=== PATIENT | female | born 1980 | race Caucasian/White ===

== ENCOUNTER 2018-03-28 15:30 | Outpatient (RCR) | payer BC, SELFPAY ==
--- NOTE | 2018-02-06 13:53 | HMH.PTOPEV ---
PT Outpatient Evaluation Rehab PT Outpatient Evaluation Start: 02/06/18 12:53 Freq: Status: Active Protocol: Document 02/06/18 13:44 PHOPRINCESS (Rec: 02/06/18 13:53 PHORNE [id number]) Electronically Signed By Bartolo Ibrahim, PT 02/06/18 13:44 Outpatient Therapy Subjective History Subjective History Pt is 37 yowf who presents with medial patella pain during certain activites x ~ 1 mo. She reports having similar problems during high school sports with no good resolution. She reports significant increase in her activity level with running and olympic lifting type activities at a local gym over the past 3-4 mos. Chief Complaint Pain Symptom Type Sharp Symptoms Relieved By Rest/Positioning Symptoms Aggravated By Physical Activity Prior Functional Limitations None Current Functional Limitations Squatting Recreation Activity Walking Stairs Symptom Description Intermittent Activity Dependent Level of pain today (0-10) 0 Pain scale - at its worst (0-10) 8 Hip/Knee Eval MMT right Hip Flexion Strength Grade 5 Normal Hip Abduction Strength Grade 5 Normal Hip Adduction Strength Grade 5 Normal Hip Extension Strength Grade 5 Normal Gluteus Neeraj Strength Grade 5 Normal Hip External Rotation Strength Grade 5 Normal Hip Internal Rotation Strength Grade 5 Normal Knee Extension Strength Grade 5 Normal Knee Flexion Strength Grade 5 Normal ROM Hip ROM Reason Not Measured Within Functional Limits Knee ROM Reason Not Measured Within Functional Limits Special Tests Hip Sheila Test Negative Left Negative Right Hip Piriformis Test Negative Left Negative Right Hip Scouring (Quadrant) Test Negative Left Negative Right Knee Anterior Drawer Test Negative Left Negative Right Kathleen 90/90 Test (PCL) Negative Left Negative Right Knee Anterior Jonh Test Negative Left Negative Right Knee Valgus Stress Test Negative Left Negative Right Knee Varus Stress Test Negative Left Negative Right Knee McMu
== END 2018-03-28 15:31 | disposition home or self-care (01) ==
LOC: PT 15:30
PROVIDERS: PCP Nurse Practitioner Family; Visit Provider Family Medicine
DX: M22.2X1 Patellofemoral disorders, right knee (principal)
CPT/HCPCS: 97010; 97014; 97110; 97140; 97163; 97760; G0283

== ENCOUNTER → 2019-03-20 10:08 | Outpatient (CLI) | payer BC, SELFPAY ==
--- NOTE | 2019-03-20 | XR_ITS ---
PROCEDURE: XR SHOULDER LT MIN 2V CLINICAL INDICATION: ACUTE SHOULDER PAIN especially with abduction COMPARISON: No exams were available for comparison FINDINGS: The lateral clavicle is intact and the AC joint appears normal. The humeral head and glenoid appear normal. There are no soft tissue calcifications. IMPRESSION: No acute findings. Dictated by: Dr. Joe Hawley MD 03/20/2019 10:[address] Joe Hawley MD in [place] 03/20/2019 10:53
== END ==
PROVIDERS: PCP Nurse Practitioner; Visit Provider Nurse Practitioner
DX: M25.512 Pain in left shoulder (principal)
CPT/HCPCS: 73030

== ENCOUNTER 2019-04-06 16:51 | Outpatient (RCR) | payer BC, SELFPAY | END 2019-04-06 16:55 | disposition home or self-care (01) | LOC: PT 16:51 | PROVIDERS: PCP Nurse Practitioner; Visit Provider Nurse Practitioner | DX: M25.512 Pain in left shoulder (principal) ==

== ENCOUNTER 2019-09-04 08:00 | Outpatient (RCR) | payer BC, SELFPAY ==
--- NOTE | 2019-08-28 09:58 | HMH.OTOPEV ---
OT Inpatient Evaluation Rehab OT Outpatient Eval Start: 08/28/19 09:29 Freq: Status: Active Protocol: Document 08/28/19 09:29 RMARSHALMitzi (Rec: 08/28/19 09:57 [id number][facility] Electronically Signed By Alphonso Joseph OT 08/28/19 09:29 Outpatient Therapy Subjective History Subjective History Pt is a 39 year old female who reports to therapy for inital evaluation to left shoulder. Pt reports her left shoulder began having pain ~ 6 months ago. Pt does not recall a specific injury to left shoulder causing her pain. Pt does engage in weight lifting exercise 2-3x's a week. Pt demosntrate with slight decreased AROM and strength. Pt did test positive for shoulder impingement special tests. Pt will continue to be seen twice a week in order to address all deficits. Chief Complaint Pain,Weakness Symptom Type Ache,Throb,Sharp,Dull Symptoms Relieved By Rest/Positioning Symptoms Aggravated By Physical Activity,Lifting Prior Functional Limitations None Current Functional Limitations Reaching,Lifting,Housework, Dressing,Desk Work/Reading, Driving,Sleeping,Recreation Activity Symptom Description Constant but Variable Level of pain today (0-10) 4 Pain scale - at its best (0-10) 2 Pain scale - at its worst (0-10) 8 Shoulder/Elbow Eval Shoulder Objective Measurements Shoulder ROM Left Shoulder Abduction Active Range of 125 degrees Motion (degrees) Shoulder Flexion Active Range of Motion 140 degrees (degrees) Query Text: Shoulder External Rotation Active Range 50 degrees of Motion (degrees) Shoulder Internal Rotation Active Range 50 degrees of Motion (degrees) pain with active ROM shoulder exam left standard pain with passive ROM shoulder exam left standard decreased ROM shoulder exam standard left Shoulder MMT Shoulder Abduction Strength Grade 3 Fair Shoulder Extension Strength Grade 3 Fair Shoulder Flexion Strength Grade 4- Good- Shoulder External Rotation Strength 3 Fair Grade Shoulder Internal Rotation Strength 3 Fair Grade Shoulder Strength Patient Testing
== END 2019-09-04 08:05 | disposition home or self-care (01) ==
LOC: OT 08:00
PROVIDERS: PCP Nurse Practitioner; Visit Provider Family Medicine
DX: M25.512 Pain in left shoulder (principal)
CPT/HCPCS: 97014; 97110; G0283

== ENCOUNTER → 2019-12-08 09:31 | Outpatient (CLI) | payer BC, SELFPAY ==
--- NOTE | 2019-12-08 09:36 | XR_ITS ---
PROCEDURE: XR SHOULDER LT MIN 2V CLINICAL INDICATION: left shoulder pain COMPARISON: XR SHOULDER LT MIN 2V from 03/20/2019 FINDINGS: No fracture or dislocation. No lytic or blastic change. There is normal mineralization. The joint spaces are well-preserved. No significant degenerative/arthritic changes. No erosive changes evident. Other findings:None. IMPRESSION: Negative left shoulder Dictated by: Vince Rico MD 12/08/2019 15:45 Electronically signed by Vince Rico MD in [place] 12/08/2019 15:45
== END ==
PROVIDERS: PCP Family Medicine; Visit Provider Orthopaedic Surgery
DX: M25.512 Pain in left shoulder (principal)
CPT/HCPCS: 73030

== ENCOUNTER 2019-12-21 14:00 | Outpatient (RCR) | payer BC, SELFPAY ==
--- NOTE | 2019-10-29 11:25 | HMH.OTOPEV ---
OT Inpatient Evaluation Rehab OT Outpatient Eval Start: 10/29/19 11:16 Freq: Status: Active Protocol: Document 10/29/19 11:16 RMARSHALL (Rec: 10/29/19 11:25 [facility] [id number]) Electronically Signed By Alphonso Joseph OT 10/29/19 11:16 Outpatient Therapy Subjective History Subjective History Pt is a 39 year old female who reports to therapy for evaluation to left shoulder. Pt was evaluated by therapist directly before COVID-19 pandemic, but with outpatient services shutting down she refused telehealth and requested to await for re- opening. Pt explains her L shoulder has been hurting her since March, and she does not recall a specific injury causing the pain. Pt is very active and usually weight lifts three times a week, but has been unable to do so due to pain. Pt informs therapist she has been resting her shoulder as much as possible. Pt's active range of motion has improved since her first evaluation, but her strength has continued to decline. Pt will continue to be seen in order to address all deficits. Chief Complaint Pain,Weakness Symptom Type Ache,Throb,Sharp,Dull Symptoms Relieved By Rest/Positioning Symptoms Aggravated By Physical Activity,Lifting Prior Functional Limitations None Current Functional Limitations Reaching,Lifting,Housework, Sleeping,Recreation Activity Symptom Description Intermittent,Activity Dependent Level of pain today (0-10) 0 Pain scale - at its best (0-10) 0 Pain scale - at its worst (0-10) 9 Shoulder/Elbow Eval Shoulder Objective Measurements Shoulder ROM Left Shoulder Abduction Active Range of 160 degrees Motion (degrees) Shoulder Flexion Active Range of Motion 160 degrees (degrees) Query Text: Shoulder External Rotation Active Range 70 degrees of Motion (degrees) Shoulder Internal Rotation Active Range 65 degrees of Motion (degrees) Shoulder MMT Shoulder Abduction Stren
--- NOTE | 2019-11-23 08:59 | HMH.RHREAS ---
Rehab Reassessment Rehab OP Re-assessment Start: 11/23/19 08:10 Freq: Status: Active Protocol: Document 11/23/19 08:15 RMARSHALL (Rec: 11/23/19 08:59 RMARSHALL [id number]) Electronically Signed By Alphonso Joseph OT 11/23/19 08:15 Rehab Re-assessment Subjective Subjective I see some improvement. Objective Objective Notes Pt continues to be seen twice a week in order to address left shoulder deficits. Each visit patient continues to engage in L shoulder AAROM/ AROM/strengthening exercises focusing on RTC strengthening and scapular strengthening. Pt also receives modalities in order to decrease pain/ inflammation. Assessment Progress Assessment Slower Than Expected Assessment Notes Pt reports no pain prior to starting exercises. However, last week pt operated heavy equipment for a few hours and resulted in 8/10 pain the same night. Pt does feel she is having pain less often if she is not having to use her arm. Pt's AROM has declined slightly in abduction and IR. However, pt's strength and endurance at L shoulder has improved. Therapist recommends pt go to an ortho in order to be evaluated. Current AROM L shoulder Flex: 165 degrees Abd: 120 degrees ER: 85 degrees IR: 45 degrees Patient goals met The following short term goals have been met: Strength: 4,4-/5 throughout L shoulder Endurance: Pt is able to tolerate L shoulder exercises for ~30 min prior to rest. HEP: Pt is independent with HEP of pulleys and ninfa exercises. Goals Not Met longterm goals Revised Goals Pt has not met all short term goals or terminal gauger goals.
== END 2019-12-21 14:05 | disposition home or self-care (01) ==
LOC: OT 14:00
PROVIDERS: PCP Nurse Practitioner; Visit Provider Family Medicine
DX: M25.512 Pain in left shoulder (principal)
CPT/HCPCS: 97014; 97110; 97164; 97166; G0283

== ENCOUNTER → 2020-02-16 14:24 | Outpatient (CLI) | payer BC, SELFPAY ==
--- NOTE | 2020-02-16 14:41 | XR_ITS ---
PROCEDURE: XR HAND LT MIN 3V CLINICAL INDICATION: LT HAND PAIN COMPARISON: No exams were available for comparison FINDINGS: No fracture or dislocation. No lytic or blastic change. There is normal mineralization. The joint spaces are well-preserved. No significant degenerative/arthritic changes. No erosive changes evident. Other findings:Small well-circumscribed cystic area at the head of the 3rd metacarpal nonspecific. IMPRESSION: No acute findings. Dictated by: Vince Rico MD 02/16/2020 15:24 Vince Rico MD in [place] 02/16/2020 15:24
--- NOTE | 2020-02-16 14:41 | XR_ITS ---
PROCEDURE: XR HAND RT MIN 3V CLINICAL INDICATION: RT HAND PAIN COMPARISON: No exams were available for comparison FINDINGS: No fracture or dislocation. No lytic or blastic change. There is normal mineralization. The joint spaces are well-preserved. No significant degenerative/arthritic changes. No erosive changes evident. Other findings:None. IMPRESSION: No acute findings. Dictated by: Vince Rico MD 02/16/2020 15:23 Vince Rico MD in [place] 02/16/2020 15:23
== END ==
PROVIDERS: PCP Family Medicine; Visit Provider Nurse Practitioner Family
DX: M79.642 Pain in left hand (principal); M79.641 Pain in right hand; I49.9 Cardiac arrhythmia, unspecified
CPT/HCPCS: 73130; 93225; 93226

== ENCOUNTER → 2020-05-10 15:34 | Outpatient (CLI) | payer BC, SELFPAY ==
[2020-05-12 09:57] LABS: Covid-19 Nasal PCR Sendout Lex NOT DETECTED
== END ==
PROVIDERS: PCP Family Medicine; Visit Provider Family Medicine
DX: Z03.818 Encounter for observation for suspected exposure to other biological agents ruled out (principal)
CPT/HCPCS: U0004

== ENCOUNTER → 2020-06-07 15:33 | Outpatient (CLI) | payer BC, SELFPAY | PROVIDERS: PCP Family Medicine; Visit Provider Family Medicine | DX: Z20.828 Contact with and (suspected) exposure to other viral communicable diseases (principal); U07.1 COVID-19 | CPT/HCPCS: U0004 ==

== ENCOUNTER → 2021-12-15 12:26 | Outpatient (CLI) | payer BC, OTHER, SELFPAY ==
--- NOTE | 2021-12-15 12:37 | XR_ITS ---
FINAL REPORT CLINICAL HISTORY: LOW BACK PAIN FINDINGS: LUMBAR SPINE. Four views demonstrate no acute fracture. There is mild degenerative change with osteophytes. There is no malalignment. IMPRESSION: Mild degenerative changes. Reviewed, Interpreted and Dictated by Bernardo Duncan III, MD Transcribed by Brittany Andujar Authenticated and [facility]
== END ==
PROVIDERS: PCP Family Medicine; Visit Provider Family Medicine
DX: M54.50 Low back pain, unspecified (principal)
CPT/HCPCS: 72110

== ENCOUNTER → 2022-03-15 13:06 | Outpatient (CLI) | payer BC, OTHER, SELFPAY ==
--- NOTE | 2022-03-15 13:11 | MR_ITS ---
FINAL REPORT CLINICAL HISTORY: LOWER BACK PAIN with left sided back pain FINDINGS: MRI LUMBAR SPINE W/O CONTRAST Multiplanar MR imaging of the lumbar spine was performed without contrast. On the sagittal T2-weighted images, disc degeneration is seen at several levels. The vertebral alignment is normal. There is no evidence of fracture. The conus has an unremarkable appearance. L1-2: No significant central canal stenosis or neural foraminal narrowing. L2-3: No significant central canal stenosis or neural foraminal narrowing. L3-4: An annular disc bulge is present. There is a left foraminal disc protrusion with mild right and moderate left neural foraminal narrowing. L4-5: An annular disc bulge is present with mild bilateral neural foraminal narrowing. L5-S1: No significant central canal stenosis or neural foraminal narrowing. IMPRESSION: Multilevel disc degeneration and spondylosis with neural foraminal narrowing at L3-4 and L4-5. Reviewed, Interpreted and Dictated by Bernardo Duncan III, MD Transcribed by Nelsy Isaac Authenticated and . [facility]
== END ==
PROVIDERS: PCP Family Medicine; Visit Provider Family Medicine
DX: M54.50 Low back pain, unspecified (principal); M51.36 Other intervertebral disc degeneration, lumbar region
CPT/HCPCS: 72148; 76376

== ENCOUNTER 2023-08-16 16:37 | Outpatient (CLI) | payer BC, OTHER, SELFPAY ==
--- NOTE | 2023-08-16 16:43 | XR_ITS ---
PROCEDURE INFORMATION: Exam: XR Left Hip Exam date and time: 08/16/2023 4:44 PM Age: 43 years old Clinical indication: Hip pain; Left hip; Additional info: Pain x 2 yrs TECHNIQUE: Imaging protocol: Radiologic exam of the left hip. Views: 2 or 3 views hip with pelvis when performed. COMPARISON: XR SACROILIAC JOINT BI MIN 3V 08/16/2023 4:44 PM FINDINGS: Bones/joints: Unremarkable. No acute fracture. Soft tissues: Unremarkable. IMPRESSION: Normal hip x-rays.
--- NOTE | 2023-08-16 16:43 | XR_ITS ---
PROCEDURE INFORMATION: Exam: XR Bilateral Sacroiliac Joints Exam date and time: 08/16/2023 4:44 PM Age: 43 years old Clinical indication: Other: Left si pain; Additional info: Left si pain x 2 yrs TECHNIQUE: Imaging protocol: XR bilateral XR of the sacroiliac joints. Views: 3 or more views. COMPARISON: CR XR HIP LT 2-3V W/PELVIS 08/16/2023 4:44 PM FINDINGS: Bones/joints: Normal. No acute fracture. Soft tissues: Normal. IMPRESSION: Normal sacroiliac joint x-rays.
== END 2023-08-16 23:59 ==
PROVIDERS: PCP Family Medicine; Visit Provider Physical Medicine & Rehabilitation
DX: M25.552 Pain in left hip (principal)
CPT/HCPCS: 72202; 73502

== ENCOUNTER 2024-08-10 08:30 | Day surgery (SDC) | payer BC, OTHER, SELFPAY ==
[2024-08-07 13:49] VITALS: BMI 29.2
[2024-08-10] MEDS: LACTATED RINGERS 1000ML 1,000 ML 50 ML IV (08:47)
[2024-08-10 08:48] VITALS: BP 128/79; PULSE 86; RESP 18; TEMP 36.9; O2SAT 99
[2024-08-10 09:22] LABS: HCG Qualitative, Serum Negative (Negative)
--- NOTE | 2024-08-10 09:39 | P.PNANES_ITS ---
[facility] Disclaimer: The information contained in this section may have been updated after the patient was seen, as this information can be updated by other users. Medical History H/O Chucho thyroiditis Fibromyalgia Osteoporosis History of gastroesophageal reflux (GERD) Hypertension Skin cancer Surgical History H/O wisdom tooth extraction H/O gastric sleeve Family History Other Family history of myocardial infarction Social History Smoking Status: Never smoker alcohol intake: current alcohol intake frequency: holidays/special occasions only substance use type: denies use current occupational status: employed Travel in the last 8 weeks: None household members: family housing: house Have you lived/traveled outside US in past 30 days?: No Contact w/someone who lives/traveled outside US past 30 days?: No Exposure to someone with infectious disease in past 14 days?: No Do you have a fever (greater than 100.4 F or 38 C)?: No Have you tested positive for COVID-19: Yes Exposed to someone with COVID-19 in past 14 days?: No Do you have a sore throat?: No Do you have a cough?: No Do you have any weakness?: No Are you experiencing any nausea/vomitting?: No Do you have any diarrhea?: No Are you experiencing any unusual bleeding?: No Do you have any muscle aches/pain?: No Do you have any abdominal pain?: No Are you experiencing loss of taste or smell?: No [facility] Anesthesia Checklist Patient Identification Patient Identification: Arm Band Structural Data Admitted From: Home Planned Operative Procedure/s: Colonoscopy Consent for Planned Operative Procedure(s) Verified: Yes Verified Documents: Surgical Consent and History and Physical NPO Status Verified Time NPO: 00:00 Additional verifications Anesthesia Reactions: No Hx Blood Transfusions: No Blood Transfusion Reaction: No Airway Assessment Mallampati Score:: Class II C-Spine Mobility Assessed: Yes TMJ Mobility Assessed: Yes Dentition: Good Dentition Neurological Assessment Level of Consciousness: Awake, Alert and Appropriate Anesthesia Plan Anesthesia Risk discussed: Yes Anesthesia Plan: Verified ASA Class: II Anesthesia Type: MAC
--- NOTE | 2024-08-10 09:59 | P.HP_ITS ---
History of Present Illness *Admission Date: 08/10/24 *Reason for visit:: Screening *History of present illness: Mrs. Isaac is a 44-year-old female who is here for initial screening colonoscopy. The examination is deemed medically necessary for screening colonoscopy. The patient has been seen, interviewed and examined prior to the procedure by both myself and the anesthesia provider. [facility] Disclaimer: The information contained in this section may have been updated after the patient was seen, as this information can be updated by other users. Medical History (Updated 08/10/24 @ 10:00 by Ray Price II, MD) H/O Chucho thyroiditis Fibromyalgia Osteoporosis History of gastroesophageal reflux (GERD) Hypertension Skin cancer Surgical History H/O wisdom tooth extraction H/O gastric sleeve Family History Other Family history of myocardial infarction Social History Smoking Status: Never smoker alcohol intake: current alcohol intake frequency: holidays/special occasions only substance use type: denies use current occupational status: employed Travel in the last 8 weeks: None household members: family housing: house Have you lived/traveled outside US in past 30 days?: No Contact w/someone who lives/traveled outside US past 30 days?: No Exposure to someone with infectious disease in past 14 days?: No Do you have a fever (greater than 100.4 F or 38 C)?: No Have you tested positive for COVID-19: Yes Exposed to someone with COVID-19 in past 14 days?: No Do you have a sore throat?: No Do you have a cough?: No Do you have any weakness?: No Are you experiencing any nausea/vomitting?: No Do you have any diarrhea?: No Are you experiencing any unusual bleeding?: No Do you have any muscle aches/pain?: No Do you have any abdominal pain?: No Are you experiencing loss of taste or smell?: No Other Medical History Have you received the Flu Vaccine for this season: Yes Have you received the Pneumonia Vaccine: No Review of Systems Review of Systems Review of systems (narrative): Negative *Cardiovascular Comments: Negative *Gastrointestinal Comments: Negative *Genitourinary Comments: Negative *Musculoskeletal Comments: Negative *Neurologic Comments: Negative Meds Home Medications and Allergies Home Medications ?Medication ?Instructions ?Recorded ?Confirmed ?Type multivitamin 1 cap PO QAM 06/23/17 08/10/24 History levothyroxine 125 mcg capsule 100 mcg PO QDAY 09/05/18 08/10/24 History vilazodone 20 mg tablet 20 mg PO DAILY 07/21/19 08/10/24 History semaglutide (weight loss) 0.25 0.25 mg SQ WEEKLY 08/07/24 08/10/24 History mg/0.5 mL subcutaneous pen injector (Wegovy) New Prescriptions to Start Prescriptions: Allergies Allergy/AdvReac Type Severity Reaction Status Date / Time No Known Allergies Allergy Verified 08/10/24 08:45 Exam Data for Last 24 hours Vital signs and Labs for Last 24 Hours: Temp Pulse Resp BP Pulse Ox O2 Del Method 98.5 F 86 18 128/79 99 Room Air 08/10/24 08:48 08/10/24 08:48 08/10/24 08:48 08/10/24 08:48 08/10/24 08:48 08/10/24 08:48 Laboratory Results - last 24 hr 08/10/24 08:50: Serum HCG, Qual Negative I & O for Last 24 hours: Intake & Output 08/07/24 08/08/24 08/09/24 08/10/24 23:59 23:59 23:59 23:59 Weight 187 lb *Routine HEENT Exam Head: Present normocephalic Eye: Present EOMI and PERRL ENT: Present mucous membranes moist *Routine Neck Exam Neck: Present supple *Routine Respiratory Exam Respiratory: Present CTA bilaterally *Routine Cardiovascular Exam Cardiovascular: Present RRR *Routine Abdominal Exam Abdominal: Present soft and normoactive bowel sounds; Absent tenderness *Routine Rectal Exam Rectal:: deferred *Routine Genitalia Exam Genitalia:: deferred *Routine Extremities Exam Extremities: Absent cyanosis, clubbing or edema *Routine Skin Exam Skin: Present warm; Absent rash *Routine Neurological Exam Neurological: Present alert and oriented X3 Assessment and Plan *Assessment and plan (1) Screening for colon cancer: Status: Acute Category: Medical Code(s): Z12.11 - Encounter for screening for malignant neoplasm of colon Plan A/P: 1. Screening for colon cancer is the preprocedural diagnosis. The patient will be anesthetized/sedated using MAC sedation. The patient has been seen and examined. Cardiac and lung assessment prior to the examination is stable. Proceed with planned screening colonoscopy
--- NOTE | 2024-08-10 10:06 | HMH.PROCNOTE ---
[facility] Procedure Note Date: 08/10/24 Time: 10:26 Procedure Note:: Colonoscopy Procedure Report: Colonoscopy with cold snare polypectomy Endoscopist: Ray Price II, MD Referring physician: Sonny Rosas MD Date of Procedure: August 10, 2024 Equipment: Olympus 190 variable stiffness pediatric colonoscope Sedation: MAC sedation Indication: Mrs. Isaac is a 44-year-old female who is here for initial screening colonoscopy. She reports no abdominal pain, weight loss, change in her bowel habits or rectal bleeding. She reports no family history of colon cancer. Procedure: Prior to the procedure, a history and physical exam was performed, and patient's medications and allergies were reviewed. The risks, benefits and alternatives of the sedation and procedure were discussed with the patient. All questions were answered and informed consent was obtained. The patient was brought to the procedure room. Patient identification and proposed procedure were verified by the physician and the nurse. The patient was placed in a left lateral decubitus position and the scope was passed under direct vision. Throughout the procedure, the patient's blood pressure, pulse, and oxygen saturations were monitored continuously. The colonoscopy was accomplished without difficulty. The patient tolerated the procedure well. Findings: On digital rectal examination there was normal rectal tone. There were no external hemorrhoids. The colonoscope was introduced through the anal canal to the rectum and advanced to the cecum. The ileocecal valve and appendiceal orifice were identified. The scope was advanced a short distance into the ileum which appeared grossly normal. The scope was then withdrawn into the colon. The cecum, ascending and transverse colon and mucosa were grossly normal. There were mildly scattered diverticuli throughout the descending and sigmoid colon (LEFT colon). There was a single 5 mm diminutive polyp in the sigmoid colon removed via cold snare polypectomy. The rectum itself was normal. Upon retroflexion within the rectum there were grade 1-2 internal hemorrhoids. The preparation was excellent throughout with Centenary Preparation Score of 9. The cecal time was 12 minutes. Impression: 1. Sigmoid colon polyp (5 mm) 2. Mild left-sided diverticulosis 3. Grade 1-2 internal hemorrhoids Plan: I will follow-up the polyp histology and recommend repeat surveillance colonoscopy again in 7 to 10 years based upon the pathology. I would encourage psyllium bulking fiber supplementation on a long-term daily maintenance basis.
[2024-08-10 10:09] VITALS: O2SAT 100
[2024-08-10 10:30] VITALS: BP 110/64; PULSE 100; RESP 18; TEMP 36.9; O2SAT 97
[2024-08-10 10:40] VITALS: BP 121/78; PULSE 90; RESP 18; O2SAT 100
[2024-08-10 10:50] VITALS: BP 121/77; PULSE 89; RESP 18; O2SAT 100
[2024-08-10 11:05] VITALS: BP 116/73; PULSE 88; RESP 18; O2SAT 99
== END 2024-08-10 11:05 | disposition home or self-care (01) ==
PROVIDERS: PCP Family Medicine; Visit Provider Internal Medicine Gastroenterology
PROC: 0DJD8ZZ Inspection of Lower Intestinal Tract, Via Natural or Artificial Opening Endoscopic (ICD-10-PCS; CPT 45378; principal; 2024-08-10 10:00)
DX: K63.5 Polyp of colon (principal); K57.30 Diverticulosis of large intestine without perforation or abscess without bleeding; K64.8 Other hemorrhoids; Z12.11 Encounter for screening for malignant neoplasm of colon
CPT/HCPCS: 45385; 84703; J2704; J7120

== ENCOUNTER 2025-03-30 07:08 | Outpatient (CLI) | payer BC, OTHER, SELFPAY ==
--- OUTSIDE RECORDS SUMMARY | 2024-01-31 07:15 | XMS_ITS ---
[facility] Address [address] [facility] [address] [place] [id number] Care Team Providers Care Babcock Tester Name Role Phone Ralph Sonny Primary Care Provider Allergies No Known Allergies Results Component Value Reference Range Notes CBC Venipuncture (in house) Reviewed date:02/05/2024 02:35:49 PM Interpretation:plat 446, mpv 7.8 Performing Lab: Notes/Report: plat 446, mpv 7.8 wbc 9.0 3.5 - 10 lymph 25.6% 15 - 50 mid 5.5% 2 - 15 gran 68.9% 35 - 80 rbc 4.23 3.5 - 5.5 hgb 13.8 11.5 - 16.5 hct 40.4 35 - 55 mcv 95.4 75 - 100 mch 32.5 25 - 35 mchc 34.1 31 - 38 platlet 446 100 - 400 P-Vitamin B12 Reviewed date:02/05/2024 02:35:49 PM Interpretation:1433 Performing Lab: Notes/Report: Test performed by [facility] [address] [place] [address] , [address], [place] [address] Yayo Adkins MD, Aircraft Part Assembler CLIA: [id number] Vitamin B12 9144 498-6919 pg/mL P-Comprehensive Metabolic Pa ines (CMP) Reviewed date:02/05/2024 02:35:49 PM Interpretation:bun 25 Performing Lab: Notes/Report: Test performed by [facility] [address] [place], [place] [address] [place] , [place] [address] Yayo Adkins MD, Aircraft Part Assembler CLIA: [id number] Sodium 140 135-145 mmol/L Potassium 4.7 3.5-5.3 mmol/L Chloride 102 97-108 mmol/L CO2 28 22-32 mmol/L Glucose 88 65-99 mg/dL BUN 25 6-20 mg/dL Creatinine 0.86 0.50-1.00 mg/dL Calcium 9.8 8.6-10.4 mg/dL eGFR by Creatinine 84 >59 mL/min/1.73m2 Protein 6.9 6.0-8.3 g/dL Albumin 4.5 3.5-5.3 g/dL Alkaline Phosphatase 62 35-121 IU/L ALT (SGPT) 10 <5-47 IU/L AST (SGOT) 15 <5-40 IU/L Bilirubin, Total 0.3 <0.2-1.2 mg/dL A/G Ratio 1.9 1.1-2.5 P-Arthritis Panel, [employer] Reviewed date:02/05/2024 02:35:49 PM Interpretation: Normal Performing Lab: Notes/Report: Test performed by [facility] [address] [place], [place] [address] [place] , [address], [place] [address] Yayo Adkins MD, Aircraft Part Assembler CLIA: [id number] Erythrocyte Sedimentation Rate (ESR), Automated 9 <26 mm/hr Rheumatoid Factor <10 <14.1 IU/mL C-Reactive Protein (CRP) 0.21 <0.50 mg/dL Antinuclear Antibodies (JENSEN) Screen, Reflex JENSEN 9 Panel Negative Negative Test performe d by Multiplex Bead Immunoassay methodology. Antinuclear Antibodies (JENSEN) Result Note SEE COMMENT For positive Autoantibodies, please refer to the interpretive chart here: [email or web address] CCP Antibodies <0.5 <0.5-3.0 U/mL P-Magnesium Reviewed date:02/05/2024 02:35:49 PM Interpretation: Normal Performing Lab: Notes/Report: Test performed by [facility] [address] [place], [place] [address] [place] , [address], [place] [address] Yayo Adkins MD, Aircraft Part Assembler CLIA: [id number] Magnesium 1.8 1.6-2.4 mg/dL P-Phosphorus Reviewed date:02/05/2024 02:35:49 PM Interpretation: Normal Performing Lab: Notes/Report: Test performed by [facility] [address] [place] [address] , [address], [place] [address] Yayo Adkins MD, Aircraft Part Assembler CLIA: [id number] Phosphorus 4.2 2.5-4.5 mg/dL P-Vitamin A (Retinol), Serum Reviewed date:02/05/2024 02:35:49 PM Interpretation: Normal Performing Lab: Notes/Report: Vitamin A (Retinol) 0.56 0.30-1.20 mg/L Vitamin A (Retinyl Palmitate) <0.02 0.00-0.10 mg/L Vitamin A, Ser/Hipolito - Interpretation Normal This test was developed and its performance characteristics determined by [facility]. It has not been cleared or approved by the US Food and Drug Administration. This test was performed in a CLIA certified laboratory and is intended for clinical purposes. Performed By: [facility] [address] [place] [address] [employer] Part As[employer]er: Jerrell Myrick MD, PhD CLIA Number: [id number] P-Vitamin D 25-Hydroxy Reviewed date:02/05/2024 02:35:49 PM Interpretation: Normal Performing Lab: Notes/Report: Test performed by [facility] [address] [place] [address] , [address], [place] [address] Yayo Adkins MD, Aircraft Part Assembler CLIA: [id number] Vitamin D 25-Hydroxy 96.0 30.0-100.0 ng/mL Interpretation of Vitamin D 25 OH: < 20 ng/mL - Deficiency 20 - 29 ng/mL - Insufficiency 30 - 100 ng/mL - Sufficiency > 100 ng/mL - Super-therapeutic- toxicity may occur above this level. Clinical correlation required. P-Vitamin B1 (Thiamine), Ser um/Plasma, LC/MS/MS Reviewed date:02/05/2024 02:35:49 PM Interpretation: Normal Performing Lab: Notes/Report: Vitamin B1 (Thiamine), Serum/Plasma, LC/MS/MS 14 4-15 nmol/L INTERPRETIVE DATA: Vitamin B1, Plasma Thiamine (vitamin B1) is reported. However, thiamine diphosphate (TDP), the biologically active form of thiamine, is not found in measurable concentrations in plasma, and is best determined in whole blood specimens. Plasma thiamine concentration reflects recent intake rather than body stores. This test was developed and its performance characteristics determined by [facility]. It has not been cleared or approved by the US Food and Drug Administration. This test was performed in a CLIA certified laboratory and is intended for clinical purposes. Performed By: [facility] [address] [place] [address] [employer] Part Assembler: Jerrell Myrick MD, PhD CLIA Number: [id number] REASON FOR VISIT joint pain Medications Medication SIG (Take, Route, Frequency, Duration) Notes Start Date End Date Status Levothyroxine Sodium 100 MCG 1 tab(s) or ally once a day; Duration: 15 day(s) Active Viibryd 20 MG 1 tab(s) orally once a day; Duration: 30 days Active Vital Signs Weight 208.2 lbs 01/31/2024 Blood pressure systolic 140 mm Hg 01/31/20 24 Blood pressure diastolic 82 mm Hg 024 Heart Rate 68 /min 01/31/2024 Height 67 in 01/31/2024 BMI 32.61 kg/m2 01/31/2024 Encounters Encounter Location Date Provider Diagnosis [facility] [address] [place] [id number] 01/31/2024 Sonny Rosas Polyarthralgia M25.5 0 and Fatigue, unspecified type R53.83 Assessments Encounter Date Diagnosis (ICD Code) Assessment Notes Treatment Notes Treatment Clinical Notes Section Notes 01/31/2024 Polyarthralgia (ICD-10 - M25.50) 01/31/2024 Fatigue, unspecified type (ICD-10 - R53.83) 01/31/2024 Other Patient may hav e fibromyalgia Plan Of Treatment Treatment Notes Assessment Notes Other Patient may have fib romyalgia Pending Test Test Name Order Date C-O-Gspuzcnj Protein (CRP) 01/31/2024 Next Appt Details Follow Up: via phone to repo rt test results, Reason: Provider Name:Sonny Graves ry, 05/31/2025 09:00:00 AM, [address], [address], [place], [phone], Progress Notes * MITRA ANTOINE NDOB:1980 (44 yo F)Acc No.[id number]:01/31/2024 Progress Notes Patient: MITRA GILMORE Provider: Meenakshi Rosas M.D. :1980 A ge:43 Y S ex:Female Date:01/31/2024 Address:[address] [place] [address] [address] [id number] Subjective: * Chief Complaints: * 1 . Joint pain. * HPI: R heumatology: 43 year old female presents with c/o joint pain P t complains of bilateral knee, ankle and elbow pain. States she started jogging again so that may be why knees and ankles ache but elbows hurt to bend or move. Pt states she noticed pain Spring 2022. * ROS: D ERMATOLOGY: no R lizette. n o H sanjuana. G ASTROENTEROLOGY: no N ausea. n o V omiting. U ROLOGY: no D ifficulty urinating. n o B lood in urine. * Medical History: H ypothyroidsm, Chucho's, Dr. Martel, Depression, Low Testosterone, Lumbar Disc Disease, MRI 2021, Allergic rhinitis. * Surgical History: G astric Sleeve 08/2017. * Hospitalization/Major Diagno stic Procedure: Nicky unger Past Hospitalization. * Family History: F ather: diagnosed with Hypertension, Heart Disease. M other: diagnosed with Hypertension, Heart Disease. * Social History: C URRENT TOBACCO USE: No . C affeine: yes, frequency: 1-2 times daily. Alcohol: yes, Wine, Mixed drinks. * Medications: T aking Viibryd 20 MG Tablet 1 tab(s) orally once a day , Taking Levothyroxine Sodium 100 MCG Tablet 1 tab(s) orally once a day , Discontinued Celecoxib 200 MG Capsule 1 cap(s) orally once a day , Medication List reviewed and reconciled with the patient * Allergies: N .K.D.A. Objective: * Vitals: W t:208.2, Temp:98.0, BP:140/82, HR:68, Nurse:shantel, Ht: 67, BMI:32.61. * Examination: G eneral Examination: General Appearance: N AD. H EENT: u nremarkable.?Heart: R SR. L ungs: c lear to auscultation. N eurologic Exam: I ntact, gait normal. S kin: n ormal, no rash. P eripheral pulses: n ormal (2+) bilaterally. E xtremities: n o leg edema. Assessment: * Assessment: 1. P olyarthralgia - M25.50 (Primary) 2 . F atigue, unspecified type - R53.83 Plan: * Treatment: Value Reference Range A ntinuclear Antibodies (JENSEN) Result Note SEE COMMENT - * A ntinuclear Antibodies (JENSEN) Screen, Reflex JENSEN 9 Panel Negative Negative - * C CP Antibodies <0.5 <0.5-3.0 - U/mL * C -Reactive Protein (CRP) 0.21 <0.50 - mg/dL * E rythrocyte Sedimentation Rate (ESR), Automated 9 <26 - mm/hr * R heumatoid Factor <10 <14.1 - IU/mL * Dalila Romero 02/05/2024 2:35: 39 PM >See phone encounter ?LAB: CBC Venipuncture (in house) (Collection Date & Time - 01/31/2024)?plat 446, mpv 7.8* Value Reference Range w bc 9.0 3.5 - 10 * l ymph 25.6% 15 - 50 * m id 5.5% 2 - 15 * g ran 68.9% 35 - 80 * r bc 4.23 3.5 - 5.5 * h gb 13.8 11.5 - 16.5 * h ct 40.4 35 - 55 * m cv 95.4 75 - 100 * m ch 32.5 25 - 35 * m chc 34.1 31 - 38 * p latlet 446 100 - 400 * [address] 01/31/2024 2:44:38 PM > Dalila Romero 02/05/2024 2:35:39 PM >See phone encounter 2.?Fatigue, unspecified type?LAB: P-Vitamin B12 (Collection Date & Time - 01/31/2024 11:07 AM)?1433* Value Reference Range V itamin B12 1433 H 232-1245 - pg/mL * Dalila Romero 02/05/2024 2:35: 39 PM >See phone encounter ?LAB: P-Comprehensive Metabolic Panel (CMP) (Collection Date & Time - 01/31/2024 11:07 AM)?bun 25* Value Reference Range A /G Ratio 1.9 1.1-2.5 - * A lbumin 4.5 3.5-5.3 - g/dL * A lkaline Phosphatase 62 35-121 - IU/L * A LT (SGPT) 10 <5-47 - IU/L * A ST (SGOT) 15 <5-40 - IU/L * B ilirubin, Total 0.3 <0.2-1.2 - mg/dL * B UN 25 H 6-20 - mg/dL * C alcium 9.8 8.6-10.4 - mg/dL * C hloride 102 97-108 - mmol/L * C O2 28 22-32 - mmol/L * C reatinine 0.86 0.50-1.00 - mg/dL * G lucose 88 65-99 - mg/dL * P otassium 4.7 3.5-5.3 - mmol/L * S odium 140 135-145 - mmol/L * P rotein 6.9 6.0-8.3 - g/dL * e GFR by Creatinine 84 >59 - mL/min/1.73m2 * Dalila Romero 02/05/2024 2:35: 39 PM >See phone encounter ?LAB: P-Magnesium (Collection Date & Time - 01/31/2024 11:07 AM)?Normal* Value Reference Range M agnesium 1.8 1.6-2.4 - mg/dL * Dalila Romero 02/05/2024 2:35: 39 PM >See phone encounter ?LAB: P-Phosphorus (Collection Date & Time - 01/31/2024 11:07 AM)?Normal* Value Reference Range P hosphorus 4.2 2.5-4.5 - mg/dL * Dalila Romero 02/05/2024 2:35: 39 PM >See phone encounter ?LAB: P-Vitamin A (Retinol), Serum (Collection Date & Time - 01/31/2024 11:07 AM)?Normal* Value Reference Range V itamin A (Retinol) 0.56 0.30-1.20 - mg/L * V itamin A (Retinyl Palmitate) <0.02 0.00-0.10 - mg/L * V itamin A, Ser/Hipolito - Interpretation Normal - * Dalila Romero 02/05/2024 2:35: 39 PM >See phone encounter ?LAB: P-Vitamin D 25-Hydroxy (Collection Date & Time - 01/31/2024 11:07 AM)? Normal* Value Reference Range V itamin D 25-Hydroxy 96.0 30.0-100.0 - ng/mL * Dalila Romero 02/05/2024 2:35: 39 PM >See phone encounter ?LAB: P-Vitamin B1 (Thiamine), Serum/Plasma, LC/MS/MS (Collection Date & Time - 01/31/2024 11:07AM)?Normal* Value Reference Range V itamin B1 (Thiamine), Serum/Plasma, LC/MS/MS 14 4-15 - nmol/L * Dalila Romero 02/05/2024 2:35: 39 PM >See phone encounter ?LAB: CBC Venipuncture (in house) (Collection Date & Time - 01/31/2024)?plat 446, mpv 7.8* Value Reference Range w bc 9.0 3.5 - 10 * l ymph 25.6% 15 - 50 * m id 5.5% 2 - 15 * g ran 68.9% 35 - 80 * r bc 4.23 3.5 - 5.5 * h gb 13.8 11.5 - 16.5 * h ct 40.4 35 - 55 * m cv 95.4 75 - 100 * m ch 32.5 25 - 35 * m chc 34.1 31 - 38 * p latlet 446 100 - 400 * [address] 01/31/2024 2:44:38 PM > Dalila Romero 02/05/2024 2:35:39 PM >See phone encounter 3.?Others? Notes: Patient may have fibromyalgia?? * Procedure Codes: 8 5025 CBC WITH AUTO DIFF * Follow Up: v ia phone to report test results * Images: Billing Information: * Visit Code: 08351 Office Visit, Est Pt., Level 4. * Procedure Codes: 10593 CBC WITH AUTO DIFF. * Electronic signature of Tatum Rosas MD on 03/30/2025 at 07:13 AM EDT Sign off status: Pending * Provider: Meenakshi Rosas M.D. Date: 0 01/31/2024 Generated for Elioi beverly/Josuég/eTransmitting on: 1 07:13 AM EDT History and Physical Notes * HPI (History of Present Illness) Category Sub-Category Detail Notes Category Not es Rheumatology joint pain Pt complains of bilateral knee, ankle and elbow pain. States she started jogging again so that may be why knees and ankles ache but elbows hurt to bend or move. Pt states she noticed pain Spring 2022 Examination Category Sub-Category Detail Notes Category Not es General Examination HEENT: unremarkable Heart: RSR Lungs: clear to auscultatio n Extremities: no leg edema General Appearance: NAD Skin: normal, no rash Neurologic Exam: Intact, gait normal Peripheral pulses: normal (2+) bilatera lly
--- OUTSIDE RECORDS SUMMARY | 2024-02-21 04:40 | XMS_ITS ---
Author Organization [facility] Address [address] [facility] [address] [place] [address] Care Team Providers Care Erco Machine Operator Name Role Phone Nannette Li [phone] Results Component Value Reference Range Flag Notes Thyroid Panel (TSH;T4Free) Reviewed date:02/24/2024 12:56:12 PM Interpretation: Performing Lab: Notes/Report: left arm [facility] Testing performed at: [] [address], [phone], , Nurse Practitioner Adult: Herrera Vanegas, PhD TSH 1.010 0.450-4.500 uIU/mL N T4,Free(Direct) 1.55 0.82-1.77 ng/dL N REASON FOR VISIT labs Medications Medication SIG (Take, Route, Fr equency, Duration) Notes Start Date End Date Status Vilazodone HCl 1 tablet oral QD 11/29/2023 Active Viibryd 1 tablet oral QD 06/25/2022 Ac tive Levothyroxine Sodium 1 tablet oral QD 03/24/2023 Active Social History Sex Assigned At : Social History Observation Description Sex Assigned At Female Encounters Encounter Location Date Provider Diagnosis [facility] [address] [place] [phone] 02/21/2024 Nannette Li Hormone replacement therapy (HRT) Z79.890 Assessments Encounter Date Diagnosis (ICD Code) Assessment Notes Treatment Notes Treatment Clinical Notes Section Notes 02/21/2024 Hormone replacement therapy (HRT) (ICD-10 - Z79.890) Plan Of Treatment No Information Progress Notes * Annette ANTOINE NDOB:1980 (44 yo F)Acc No.[id number]:02/21/2024 Patient: Annette Israel Provider: Marcia Li MD :1980 A ge:43 Y S ex:Female Date:02/21/2024 Address:[address] [place] [address] [address] [facility] Subjective: * Chief Complaints: * L abs * Medications: T akingLevothyroxine Sodium 1 tablet oral QD Viibryd(Vilazodone HCl) 1 tablet oral QD Vilazodone HCl 1 tablet oral QD Taking Levothyroxine Sodium 1 tablet oral QD Taking Viibryd(Vilazodone HCl) 1 tablet oral QD Taking Vilazodone HCl 1 tablet oral QD Assessment: * Assessment: 1. H ormone replacement therapy (HRT) - Z79.890 (Primary) Plan: * Treatment: * Electronic signature of Radha Li MD on 03/30/2025 at 07:12 AM EDT Sign off status: Pending Visit Status: C HK (Check Out) * Provider: Marcia Li MD Date: 0 02/21/2024 Generated for Shon paul/Jeremías/Emiliano on: 1 07:12 AM EDT
--- OUTSIDE RECORDS SUMMARY | 2024-05-25 13:30 | XMS_ITS ---
Author Organization [facility] Address [address] [place] [address] [place] [id number] Care Team Providers Care Beating Machine Operator Name Role Phone Sonny Rosas Primary Care Provider Allergies No Known Allergies REASON FOR VISIT prelim weighloss program Medications Medication SIG (Take, Route, Frequency, Duration) Notes Start Date End Date Status DULoxetine HCl 60 MG 1 capsule Orally On ce a day; Duration: 90 days 02/05/2024 Active Levothyroxine Sodium 100 MCG 1 tab(s) or ally once a day; Duration: 15 day(s) Active Problems Problem Type SNOMED Code ICD Code Onset Dates Problem Status W/U Status Risk Notes Problem Obesity (101039402) Non morbid obesity (E66.9) Active confirmed Vital Signs Weight 212.2 lbs 05/25/2024 Blood pressure systolic 130 mm Hg 05/25/20 24 Blood pressure diastolic 90 mm Hg 024 Heart Rate 98 /min 05/25/2024 Height 67 in 05/25/2024 BMI 33.23 kg/m2 05/25/2024 Encounters Encounter Location Date Provider Diagnosis [facility] [address] [place] [id number] 05/25/2024 Sonny Rosas Non morbid obesity E66.9 ; Colon cancer screening Z12.11 and Weight gain R63.5 Assessments Encounter Date Diagnosis (ICD Code) Assessment Notes Treatment Notes Treatment Clinical Notes Section Notes 05/25/2024 Non morbid obesity (ICD-10 - E66.9) Discussed starting Noemi, [facility] 05/25/2024 Colon cancer screening (ICD-10 - Z12.11) 05/25/2024 Weight gain (ICD-10 - R63.5) Plan Of Treatment Treatment Notes Assessment Notes Non morbid obesity Discussed starting W regi, she uses [facility] Pending Test Test Name Order Date colonoscopy 05/25/2024 Next Appt Details Follow Up: 3 Months, Reason: Provider Name:Sonny Graves ry, 05/31/2025 09:00:00 AM, [address] [facility] [address], [address], [place], [place], [id number], Progress Notes * MITRA ANTOINE NDOB:1980 (44 yo F)Acc No.[id number]:05/25/2024 Progress Notes Patient: MITRA GILMORE Provider: Meenakshi Rosas M.D. :1980 A ge:43 Y S ex:Female Date:05/25/2024 Address:[address] [place] [address] [facility] [address] [facility], [facility] Subjective: * Chief Complaints: * 1 . Prelim weighloss program. * HPI: H PI: 43 year old female presents with c/o Patient is here today for?Pt here to discuss weight loss. * ROS: D ERMATOLOGY: no R lizette. n o H sanjuana. G ASTROENTEROLOGY: no N ausea. n o V omiting. U ROLOGY: no D ifficulty urinating. n o B lood in urine. * Medical History: H ypothyroidsm, Chucho's, Dr. Martel, Depression, Low Testosterone, Lumbar Disc Disease, MRI 2021, Allergic rhinitis. * Surgical History: G astric Sleeve 08/2017. * Hospitalization/Major Diagno stic Procedure: D enies Past Hospitalization. * Family History: F ather: diagnosed with Hypertension, Heart Disease. M other: diagnosed with Hypertension, Heart Disease. * Social History: C URRENT TOBACCO USE: No . C affeine: yes, frequency: 1-2 times daily. Alcohol: yes, Wine, Mixed drinks. * Medications: T aking Levothyroxine Sodium 100 MCG Tablet 1 tab(s) orally once a day , Taking DULoxetine HCl 60 MG Capsule Delayed Release Particles 1 capsule Orally Once a day , Medication List reviewed and reconciled with the patient * Allergies: N .K.D.A. Objective: * Vitals: W t:212.2, Temp:97.8, BP:130/90, HR:98, Nurse:kk, Ht: 67, BMI:33.23. * Examination: G eneral Examination: General Appearance: N AD, BMI 33.23. Assessment: * Assessment: 1. N on morbid obesity - E66.9 (Primary) 2 . C olon cancer screening - Z12.11 3 . W eight gain - R63.5 Plan: * Treatment: 2. C olon cancer screening I maging: colonoscopy * Follow Up: 3 Months * Images: Billing Information: * Visit Code: 36503 Office Visit, Est Pt., Level 3. * Procedure Codes: * Electronic signature of Tatum Rosas MD on 03/30/2025 at 07:13 AM EDT Sign off status: Pending * Provider: Meenakshi Rosas M.D. Date: 1 07/26/2023 Generated for Shon paul/Jeremías/eTshortysmitting on: 07:13 AM EDT History and Physical Notes * HPI (History of Present Illness) Category Sub-Category Detail Notes Category Not es HPI Patient is here today for Pt here to disc uss weight loss Examination Category Sub-Category Detail Notes Category Not es General Examination General Appearance: NAD, BMI 33.23
--- OUTSIDE RECORDS SUMMARY | 2024-06-19 06:30 | XMS_ITS ---
Author Organization [facility] Address [address] [facility] [address] [place] [id number] Care Team Providers Care Medical Scientific Officer Name Role Phone Sonny Rosas Primary Care Provider [phone] Caitie Mock Unavailable [phone] Allergies No Known Allergies Results Component Value Reference Range Notes Influenza Screen (in house) Reviewed date:06/19/2024 11:44:52 AM Interpretation:neg Performing Lab: Notes/Report: neg results neg CBC Fingerstick (in house) Reviewed date:06/19/2024 11:44:37 AM Interpretation: Performing Lab: Notes/Report: wbc 7.8 3.5 - 10 lym 30.86 15 - 50 mid 6.1 2 - 15 gran 63.1 35 - 80 rbc 4.18 3.5 - 5.5 hgb 13.6 11.5 - 16.5 hct 38.9 35 - 55 mcv 93.1 75 - 100 mch 32.7 25 - 35 mchc 35.1 31 - 38 plat 288 100 - 400 Covid test (in house) Reviewed date:06/19/2024 11:44:44 AM Interpretation:neg Performing Lab: Notes/Report: neg Result: neg REASON FOR VISIT cough and sinus issues Medications Medication SIG (Take, Route, Frequency, Duration) Notes Start Date End Date Status Medrol 4 MG as directed orally d aily; Duration: 6 days 06/19/2024 Active Zithromax Z-Jurgen 250 MG 2 pills first day then one daily for 4 days orally as directed; Duration: 5 days 06/19/2024 Active Wegovy 0.25 MG/0.5ML 0.5 mL Subcutaneous once weekly 2024 Active Benzonatate 200 MG 1 capsule Orally Thr ee times a day 06/19/2024 Active DULoxetine HCl 60 MG 1 capsule Orally On ce a day; Duration: 90 days 02/05/2024 Active Promethazine-DM 6.25-15 MG/5ML 5 ml orally every 6 hours prn 06/19/2024 Active Levothyroxine Sodium 100 MCG 1 tab(s) orally once a day; Duration: 15 day(s) Active Vital Signs Weight 202.2 lbs 06/19/2024 Blood pressure systolic 130 mm Hg 06/19/19 25 Blood pressure diastolic 88 mm Hg 025 Heart Rate 90 /min 06/19/2024 Height 67 in 06/19/2024 BMI 31.67 kg/m2 06/19/2024 Encounters Encounter Location Date Provider Diagnosis [facility] [address] [facility] 36 [facility] [address] [place] [id number] 06/19/2024 Caitie Valdiviaelton Acute URI J06.9 ; Bronchitis J40 and Acute otitis media, bilateral H66.93 Assessments Encounter Date Diagnosis (ICD Code) Assessment Notes Treatment Notes Treatment Clinical Notes Section Notes 06/19/2024 Acute URI (ICD-10 - J06.9) 06/19/2024 Bronchitis (ICD-10 - J40) Has an inhaler at home. 06/19/2024 Acute otitis media, bilateral (ICD-10 - H66.93) Plan Of Treatment Medication Medication Name Sig Start Date Stop Date Notes Medrol 4 MG as directed orally d aily; Duration: 6 days 06/19/2024 Zithromax Z-Jurgen 250 MG 2 pills first day then one daily for 4 days orally as directed; Duration: 5 days 06/19/2024 Benzonatate 200 MG 1 capsule Orally Thr ee times a day 06/19/2024 Promethazine-DM 6.25-15 MG/5ML 5 ml oral ly every 6 hours prn 06/19/2024 Treatment Notes Assessment Notes [facility]chitis [facility] Next Appt Details Follow Up: prn, Reason: Provider Name:Sonny dean, 05/31/2025 09:00:00 AM, [address], [place], [id number], Progress Notes * ANTOINE MITRA NDOB:1980 (44 yo F)Acc No.[id number]:06/19/2024 Progress Notes Patient: MITRA GILMORE Provider: JANETTE Carey :1980 A ge:44 Y S ex:Female Date:06/19/2024 Address:[address] [place] [address] [address], [place], [id number] Pcp:Sonny Rosas Subjective: * Chief Complaints: * 1 . Cough and sinus issues. * HPI: E NT/respiratory: 44 year old female presents with c/o cough P t sts she cannot get rid of her cough. c/o nasal congestion. c/o ear pain P t sts she has some ear pain. Denies : Fever. sore throat P t sts the first 3 days she had a sore throat, but has since g one away. Pt sts her symptoms started last Saturday. Pt sts she has taken Albuterol and a saline nose spray both of which have not helped. * ROS: D ERMATOLOGY: no R lizette. n o H sanjuana. G ASTROENTEROLOGY: no N ausea. n o V omiting. U ROLOGY: no D ifficulty urinating. n o B lood in urine. * Medical History: H ypothyroidsm, Chucho's, Dr. Martel, Depression, Low Testosterone, Lumbar Disc Disease, MRI 2021, Allergic rhinitis. * Surgical History: G astric Sleeve 08/2017. * Family History: F ather: diagnosed with [...] 1 capsule Orally Once a day , Taking Wegovy 0.25 MG/0.5ML Solution Auto-injector 0.5 mL Subcutaneous once weekly , Medication List reviewed and reconciled with the patient * Allergies: N .K.D.A. Objective: * Vitals: W t:202.2, Temp:98.6, BP:130/88, HR:90, Nurse:RANI, Ht: 67, BMI:31.67. * Examination: E NT/Respiratory: General Appearance: N AD. E ars: a uditory canals normal bilaterally, TM's erythematous bilaterally. N ose : turbinates red, congested. S inuses : non tender bilaterally. O ral cavity : erythema without exudate on pharynx. N ob : n o cervical lymphadenopathy. H eart : R RR, normal S1 S2, no murmurs.?Lungs: expiratory wheezes, no rales. Assessment: * Assessment: 1. A cute URI - J06.9 (Primary) 2 . B ronchitis - J40 3 .?Acute otitis media, bilateral - H66.93 Plan: * Treatment: Value Reference Range r esults neg * Patricia Rey 06/19/2024 11:14 :55 AM > Provider reviewed results while patient in office.Caitie Mock 06/19/2024 11:44:48 AM > ?LAB: CBC Fingerstick (in house) (Collection Date & Time - 06/19/2024)* Value Reference Range w bc 7.8 3.5 - 10 * l ym 30.86 15 - 50 * m id 6.1 2 - 15 * g ran 63.1 35 - 80 * r bc 4.18 3.5 - 5.5 * h gb 13.6 11.5 - 16.5 * h ct 38.9 35 - 55 * m cv 93.1 75 - 100 * m ch 32.7 25 - 35 * m chc 35.1 31 - 38 * p lat 288 100 - 400 * Patricia Rey 06/19/2024 10:48 :47 AM > Provider reviewed results while patient in office.Caitie Mock 06/19/2024 11:44:33 AM > ?LAB: Covid test (in house) (Collection Date & Time - 06/19/2024)?neg* Value Reference Range R esult: neg * Patricia Rey 06/19/2024 11:15 :14 AM > Provider reviewed results while patient in office.Caitie Mock 06/19/2024 11:44:41 AM > 2.?Bronchitis? Start Medrol Tablet Therapy Pack, 4 MG, as directed, orally, daily, 6 days, 1, Refills 0.? Notes: Has an inhaler at home.??3.?Acute otitis media, bilateral? Start Zithromax Z-Jurgen Tablet, 250 MG, 2 pills first day then one daily for 4 days, orally, as directed, 5 days, 1, Refills 0.?? * Procedure Codes: 3 6416 CAPILLARY BLOOD DRAW, 53507 CBC WITH AUTO DIFF, 79812 COVID TEST IN HOUSE, Modifiers: QW , 43037 Flu Test- Nasal Swab, Modifiers: QW * Follow Up: p rn * Images: Billing Information: * Visit Code: 19739 Office Visit, Est Pt., Level 3. * Procedure Codes: 32025 CAPILLARY BLOOD DRAW. 51016 CBC WITH AUTO DIFF. 72295 COVID TEST IN HOUSE. Modifiers: QW 80177 Flu Test- Nasal Swab. Modifiers: QW * Electronic signature of JANETTE Delaney on 03/30/2025 at 07:12 AM EDT Sign off status: Pending * Provider: JANETTE Carey Date: 0 06/19/2024 Generated for Shon paul/Jeremías/eTransmitting on: 1 07:12 AM EDT History and Physical Notes * HPI (History of Present Illness) Category Sub-Category Detail Notes Category Not es ENT/respiratory sore throat Pt sts the first 3 days she had a sore throat, but has since gone away Pt sts her symptoms started last Saturday. Pt sts she has taken Albuterol and a saline nose spray both of which have not helped ear pain Pt sts she has some ear pain cough Pt sts she cannot ge t rid of her cough Fever nasal congestion Examination Category Sub-Category Detail Notes Category Not es ENT/Respiratory Oral cavity : erythema without exudate on pharynx Sinuses : non tender bilateral ly Ears: auditory canals norm al bilaterally, TM's erythematous bilaterally Neck : no cervical lymphade nopathy Heart : RRR, normal S1 S2, n o murmurs Lungs: expiratory wheezes, no rales General Appearance: NAD Nose : turbinates red, arabella ested
--- OUTSIDE RECORDS SUMMARY | 2024-06-29 07:45 | XMS_ITS ---
Author Organization [facility] Address [address] [facility] [address] [place] [address] Care Team Providers Care Staffing Assistant Name Role Phone Nannette Li [phone] REASON FOR VISIT Screening Mammogram Social History Sex Assigned At : Social History Observation Description Sex Assigned At Female Encounters Encounter Location Date Provider Diagnosis Mammography [facility] [address] [place] [address] 06/29/2024 Nannette Li Plan Of Treatment No Information Progress Notes * Annette ANTOINE NDOB:1980 (44 yo F)Acc No.[id number]:06/29/2024 Patient: Annette Israel Provider: Marcia Li MD :1980 A ge:44 Y S ex:Female Date:06/29/2024 Address:[address] [place] [address] [address], [id number] Subjective: * Chief Complaints: * S creening Mammogram * Electronic signature of Radha Li MD on 03/30/2025 at 07:12 AM EDT Sign off status: Pending Visit Status: C ANC-PROV (Cancelled Provider) * Provider: Marcia Li MD Date: 0 06/29/2024 Generated for Shon ng/Fasesarg/eTransmitting on: 1 07:12 AM EDT
--- OUTSIDE RECORDS SUMMARY | 2024-06-29 09:00 | XMS_ITS ---
Author Organization [facility] Address [address] [facility] [address] [place] [address] Care Team Providers Care Ring Attacher Name Role Phone Nannette Li [phone] REASON FOR VISIT Annual after MMG Social History Sex Assigned At : Social History Observation Description Sex Assigned At Female Encounters Encounter Location Date Provider Diagnosis [facility] [address] [place] [address] 06/29/2024 Nannette Li Plan Of Treatment No Information Progress Notes * Annette ANTOINE NDOB:1980 (44 yo F)Acc No.[id number]:06/29/2024 Progress Note Patient: Annette Israel Provider: Marcia Li MD :1980 A ge:44 Y S ex:Female Date:06/29/2024 Address:[address] [place] [address] [address], [id number] Subjective: * Chief Complaints: * A nnual after MMG * Electronic signature of Radha Li MD on 03/30/2025 at 07:13 AM EDT Sign off status: Pending Visit Status: C ANC-PROV (Cancelled Provider) * Provider: Marcia Li MD Date: 0 06/29/2024 Generated for Printi ng/Faxing/eTransmitting on: 07:13 AM EDT
--- OUTSIDE RECORDS SUMMARY | 2024-07-29 07:15 | XMS_ITS ---
[facility] Address [address] [facility] [address] [place] [id number] Care Team Providers Care Internal Recruiter Name Role Phone Zac Rosasian Primary Care Provider [phone] Allergies No Known Allergies Results Component Value Reference Range Notes Influenza Screen (in house) Reviewed date:07/29/2024 12:21:01 PM Interpretation:Negative Performing Lab: Notes/Report: Negative results neg CBC Fingerstick (in house) Reviewed date:07/29/2024 12:22:11 PM Interpretation: Performing Lab: Notes/Report: wbc 8.3 3.5 - 10 lym 34.9 15 - 50 mid 6.8 2 - 15 gran 58.3 35 - 80 rbc 4.42 3.5 - 5.5 hgb 14.3 11.5 - 16.5 hct 41.6 35 - 55 mcv 94.0 75 - 100 mch 32.4 25 - 35 mchc 34.4 31 - 38 plat 241 100 - 400 Covid test (in house) Reviewed date:07/29/2024 12:21:31 PM Interpretation:Negative Performing Lab: Notes/Report: Negative Result: neg REASON FOR VISIT cough is not any better Medications Medication SIG (Take, Route, Frequency, Duration) Notes Start Date End Date Status DULoxetine HCl 60 MG 1 capsule Orally On ce a day; Duration: 90 days 02/05/2024 Active Levothyroxine Sodium 100 MCG 1 tab(s) orally once a day; Duration: 15 day(s) Active Wegovy 1 MG/0.5ML 0.5 ml Subcutaneous once weekly 07/29/2024 Active Promethazine-DM 6.25-15 MG/5ML 5 ml orally every 6 hours prn 06/19/2024 Active Vital Signs Weight 194 lbs 07/29/2024 Blood pressure systolic 124 mm Hg 07/29/19 25 Blood pressure diastolic 90 mm Hg 025 Heart Rate 85 /min 07/29/2024 Height 67 in 07/29/2024 BMI 30.38 kg/m2 07/29/2024 Encounters Encounter Location Date Provider Diagnosis [place] [address] [facility] 36 [facility] [address] [place] [id number] 07/29/2024 Sonny Rosas Acute URI J06.9 and Non morbid obesity E66.9 Assessments Encounter Date Diagnosis (ICD Code) Assessment Notes Treatment Notes Treatment Clinical Notes Section Notes 07/29/2024 Acute URI (ICD-10 - J06.9) 07/29/2024 Non morbid obesity (ICD-10 - E66.9) Plan Of Treatment Medication Medication Name Sig Start Date Stop Date Notes Wegovy 1 MG/0.5ML 0.5 ml Subcutaneous once weekly 07/29/19 25 Wegovy 0.5 MG/0.5ML 0.5 mL Subcutaneous once weekly 2023 Next Appt Details Follow Up: as scheduled,and prn, Reason: Provider Name:Sonny Graves ry, 05/31/2025 09:00:00 AM, [address] [facility] 36 [facility], [address], [place], [id number], Progress Notes * MITRA ANTOINE NDOB:1980 (44 yo F)Acc No.[id number]:07/29/2024 Progress Notes Patient: MITRA GILMORE Provider: Meenakshi Rosas M.D. :1980 A ge:44 Y S ex:Female Date:07/29/2024 Address:[address] [place] [address] [address] [facility], [id number] Subjective: * Chief Complaints: * 1 . Cough is not any better. * HPI: E NT/respiratory: 44 year old female presents with c/o cough P t presents today with c/o persistent cough. Pt sts that her cough has not resolved since she was here on 06/19/24. Pt sts that she does still have some cough syrup at home but does not have any Benzonatate. Pt sts that her cough is worse in the mornings but during the day it is fairly dry. Pt sts that in the mornings she coughs up some sputum that is clear/white in color. * ROS: D ERMATOLOGY: no R lizette. [...] capsule Orally Once a day , Taking Promethazine-DM 6.25-15 MG/5ML Syrup 5 ml orally every 6 hours prn , Taking Wegovy 0.5 MG/0.5ML Solution Auto-injector 0.5 mL Subcutaneous once weekly , Discontinued Medrol 4 MG Tablet Therapy Pack as directed orally daily , Discontinued Benzonatate 200 MG Capsule 1 capsule Orally Three times a day , Discontinued Zithromax Z-Jurgen 250 MG Tablet 2 pills first day then one daily for 4 days orally as directed , Medication List reviewed and reconciled with the patient * Allergies: N .K.D.A. Objective: * Vitals: W t:194, Temp:98.0, BP:124/90, HR:85, O2 Sat:99% on RA, Nurse:BABITA, Ht: 67, BMI:30.38. Assessment: * Assessment: 1. A prashant URI - J06.9 (Primary) 2 . N on morbid obesity - E66.9 ? Plan: * Treatment: Value Reference Range r esults neg * Antionette Roa 07/29/2024 12:2 0:51 PM > reviewed w/ pt in office ?LAB: CBC Fingerstick (in house) (Collection Date & Time - 07/29/2024)* Value Reference Range w bc 8.3 3.5 - 10 * l ym 34.9 15 - 50 * m id 6.8 2 - 15 * g ran 58.3 35 - 80 * r bc 4.42 3.5 - 5.5 * h gb 14.3 11.5 - 16.5 * h ct 41.6 35 - 55 * m cv 94.0 75 - 100 * m ch 32.4 25 - 35 * m chc 34.4 31 - 38 * p lat 241 100 - 400 * Patricia Rey 07/29/2024 11:55 :01 AM > , Provider reviewed results while patient in office. ?LAB: Covid test (in house) (Collection Date & Time - 07/29/2024)?Negative* Value Reference Range R esult: neg * Antionette Roa 07/29/2024 12:2 1:21 PM > reviewed w/ pt in office 2.?Non morbid obesity? Stop Wegovy Solution Auto-injector, 0.5 MG/0.5ML, 0.5 mL, Subcutaneous, once weekly;?Start Wegovy Solution Auto-injector, 1 MG/0.5ML, 0.5 ml, Subcutaneous, once weekly, 2 mL, Refills 0.? * Procedure Codes: [address] [place], [address] CAPILLARY BLOOD DRAW, 21692 CBC WITH AUTO DIFF, 81269 Flu Test- Nasal Swab, Modifiers: QW , 27778 COVID TEST IN HOUSE, Modifiers: QW , 3074F SYST BP LT 130 MM HG, 3080F DIAST BP = 90 MM HG * Follow Up: a s scheduled,and prn * Images: Billing Information: * Visit Code: 38154 Office Visit, Est Pt., Level 3. * Procedure Codes: [address] [place]. [address] CAPILLARY BLOOD DRAW. 02650 CBC WITH AUTO DIFF. 91221 Flu Test- Nasal Swab. Modifiers: QW 02119 COVID TEST IN HOUSE. Modifiers: QW 3074F SYST BP LT 130 MM HG. 3080F DIAST BP = 90 MM HG. * Electronic signature of Tatum Rosas MD on 03/30/2025 at 07:13 AM EDT Sign off status: Pending * Provider: Meenakshi Rosas M.D. Date: 0 07/29/2024 Generated for Shon paul/Jeremías/Emiliano on: 1 07:13 AM EDT History and Physical Notes * HPI (History of Present Illness) Category Sub-Category Detail Notes Category Not es ENT/respiratory cough Pt presents toda y with c/o persistent cough. Pt sts that her cough has not resolved since she was here on 06/19/24. Pt sts that she does still have some cough syrup at home but does not have any Benzonatate. Pt sts that her cough is worse in the mornings but during the day it is fairly dry. Pt sts that in the mornings she coughs up some sputum that is clear/white in color
--- OUTSIDE RECORDS SUMMARY | 2024-08-24 13:30 | XMS_ITS ---
Author Organization [facility] Address Formerly [facility] [address] [place]te[place] [id number] Care Team Providers Care Diamond Die Maker Name Role Phone Zac Rosasian Primary Care Provider Allergies No Known Allergies Results Component Value Reference Range Notes P-T4 Free (thyroxine) Reviewed date:08/26/2024 03:24:43 PM Interpretation:Normal Performing Lab: Notes/Report: CLIA: [id number] Yayo Adkins MD, Lean Manufacturing Engineer [address] [place] [address] , [facility], [place] [address] Test performed by [employer] Thyroxine Free (free T4) 1.35 0.86-1.76 ng/dL P-TSH Reviewed date:08/26/2024 03:24:43 PM Interpretation:Normal Performing Lab: Notes/Report: Test performed by [facility] [address] [place] [address] , [facility], [place] [address] Yayo Adkins MD, Lean Manufacturing Engineer CLIA: [id number] TSH 0.84 0.43-5.25 mU/L REASON FOR VISIT 3 month Medications Medication SIG (Take, Route, Frequency, Duration) Notes Start Date End Date Status Wegovy 1.7 MG/0.75ML 0.75 ml Subcutaneou s once weekly 08/24/2024 Active Levothyroxine Sodium 100 MCG 1 tab(s) orally once a day; Duration: 15 day(s) Active DULoxetine HCl 60 MG TAKE 1 CAPSULE BY M OUTH ONCE DAILY; Duration: 90 Active Vital Signs Weight 188 lbs 08/24/2024 Blood pressure systolic 126 mm Hg 08/25/19 25 Blood pressure diastolic 88 mm Hg 025 Heart Rate 84 /min 08/24/2024 Height 67 in 08/24/2024 BMI 29.44 kg/m2 08/24/2024 Encounters Encounter Location Date Provider Diagnosis [facility] [address] [place] [address] [address] [place], [place] [id number] 08/24/2024 Sonny Rosas Non morbid obesity E 66.9 and Hypothyroidism (acquired) E03.9 Assessments Encounter Date Diagnosis (ICD Code) Assessment Notes Treatment Notes Treatment Clinical Notes Section Notes 08/24/2024 Non morbid obesity (ICD-10 - E66.9) 08/24/2024 Hypothyroidism (acquired) (ICD-10 - E03.9) Plan Of Treatment Medication Medication Name Sig Start Date Stop Date Notes Wegovy 1.7 MG/0.75ML 0.75 ml Subcutaneous once weekly 08/08 Wegovy 1 MG/0.5ML 0.5 ml Subcutaneous once weekly 07/29/19 25 Next Appt Details Follow Up: 3 Months, Reason: Provider Name:Sonny Graves ry, 05/31/2025 09:00:00 AM, [address] [place] [address], [address] , [place], [place], [id number], Progress Notes * MITRA ANTOINE NDOB:1980 (44 yo F)Acc No.[id number]:08/24/2024 Progress Notes Patient: MITRA GILMORE Provider: Meenakshi Rosas M.D. :1980 A ge:44 Y S ex:Female Date:08/24/2024 Address:[address] [place] [address] [place], [place] Subjective: * Chief Complaints: * 1 . 3 month. * HPI: H PI: 44 year old female presents with c/o Here for follow up on:?Pt here for 3 mo f/u on weight loss after starting Wegovy. Pt states she is doing well and has not had any issues with medication. * ROS: D ERMATOLOGY: no R lizette. [...] * Family History: F ather: diagnosed with Heart Disease, Hypertension. M other: diagnosed with Hypertension, Heart Disease. * Social History: C URRENT TOBACCO USE: No . C affeine: yes, frequency: 1-2 times daily. Alcohol: yes, Wine, Mixed drinks. * Medications: T aking Levothyroxine Sodium 100 MCG Tablet 1 tab(s) orally once a day , Taking Wegovy 1 MG/0.5ML Solution Auto-injector 0.5 ml Subcutaneous once weekly , Taking DULoxetine HCl 60 MG Capsule Delayed Release Particles TAKE 1 CAPSULE BY MOUTH ONCE DAILY , Discontinued Promethazine-DM 6.25-15 MG/5ML Syrup 5 ml orally every 6 hours prn , Medication List reviewed and reconciled with the patient * Allergies: N .K.D.A. Objective: * Vitals: W t:188, Temp:97.8, BP:126/88, HR:84, Nurse:shnatel, Ht: 67, BMI:29.44. * Examination: G eneral Examination: General Appearance: N AD. H eart: R SR. L ungs:?clear to auscultation. P eripheral pulses: n ormal (2+) bilaterally. E xtremities:?no leg edema. Assessment: * Assessment: 1. N on morbid obesity - E66.9 (Primary) 2 . H ypothyroidism (acquired) - E03.9 Plan: * Treatment: 2. H ypothyroidism (acquired) L AB: P-T4 Free (thyroxine) (Collection Date & Time - 08/24/2024 04:55 PM) N ormal Value Reference Range T hyroxine Free (free T4) 1.35 0.86-1.76 - ng/d L * JadCora 08/26/2024 1:57:50 PM > LM for pt to return call [address] 08/26/2024 3:24:31 PM > Pt informed ?LAB: P-TSH (Collection Date & Time - 08/24/2024 04:55 PM)?Normal* Value Reference Range T SH 0.84 0.43-5.25 - mU/L * [address] 08/26/2024 1:57:50 PM > LM for pt to return call [address] 08/26/2024 3:24:31 PM > Pt informed * Procedure Codes: 3 6415 VENIPUNCT, ROUTINE*, 3074F SYST BP LT 130 MM HG, 3079F DIAST BP 80-89 MM HG * Follow Up: 3 Months * Images: Billing Information: * Visit Code: 91814 Office Visit, Est Pt., Level 3. * Procedure Codes: 30944 VENIPUNCT, ROUTINE*. 3074F SYST BP LT 130 MM HG. 3079F DIAST BP 80-89 MM HG. * Electronic signature of Tatum Rosas MD on 03/30/2025 at 07:11 AM EDT Sign off status: Pending * Provider: Meenakshi Rosas M.D. Date: 0 08/24/2024 Generated for Shon paul/Jeremías/eTransmitting on: 1 07:11 AM EDT History and Physical Notes * HPI (History of Present Illness) Category Sub-Category Detail Notes Category Not es HPI Here for follow up on: Pt here f or 3 mo f/u on weight loss after starting Wegovy. Pt states she is doing well and has not had any issues with medication Examination Category Sub-Category Detail Notes Category Not es General Examination Heart: RSR Lungs: clear to auscultatio n Extremities: no leg edema General Appearance: NAD Peripheral pulses: normal (2+) bilatera lly
--- OUTSIDE RECORDS SUMMARY | 2024-11-25 11:15 | XMS_ITS ---
Author Organization [facility] Address [address] [place] [address] DWAYNE Ortez [id number] Care Team Providers Care Machine Bander And Cellophaner Name Role Phone Sonny Rosas Primary Care Provider [phone] Allergies No Known Allergies REASON FOR VISIT 3 month check Medications Medication SIG (Take, Route, Frequency, Duration) Notes Start Date End Date Status DULoxetine HCl 60 MG TAKE 1 CAPSULE BY M OUTH ONCE DAILY; Duration: 90 Active Wegovy 2.4 MG/0.75ML 0.75 mL Subcutaneou s once a week; Duration: 30 days 09/24/2024 Active Levothyroxine Sodium 100 MCG 1 tab(s) orally once a day; Duration: 15 day(s) Active Vital Signs Weight 167 lbs 11/25/2024 Blood pressure systolic 124 mm Hg 11/26/19 25 Blood pressure diastolic 72 mm Hg 025 Heart Rate 91 /min 11/25/2024 Height 67 in 11/25/2024 BMI 26.15 kg/m2 11/25/2024 Encounters Encounter Location Date Provider Diagnosis [facility] [address] [place] [address] DW[place] Orte[place] [id number] 11/25/2024 Sonny Rosas Non morbid obesity E66.9 and BMI 26.0-26.9,adult Z68.26 Assessments Encounter Date Diagnosis (ICD Code) Assessment Notes Treatment Notes Treatment Clinical Notes Section Notes 11/25/2024 Non morbid obesity (ICD-10 - E66.9) 11/25/2024 BMI 26.0-26.9,adult (ICD-10 - Z68.26) Plan Of Treatment Medication Medication Name Sig Start Date Stop Date Notes Wegovy 2.4 MG/0.75ML 0.75 mL Subcutaneou s once a week; Duration: 30 days 09/24/2024 Next Appt Details Follow Up: 6 Months, Reason: Provider Name:Sonny Graves ry, 05/31/2025 09:00:00 AM, [address] [facility] [address], [place], [place], [id number], Progress Notes * MITRA ANTOINE NDOB:1980 (44 yo F)Acc No.[id number]:11/25/2024 Progress Notes Patient: MITRA GILMORE Provider: Meenakshi Rosas M.D. :1980 A ge:44 Y S ex:Female Date:11/25/2024 Address:[address] [place] [place] [address] [facility] [address] [facility], [place] Subjective: * Chief Complaints: * 1 . 3 month check. * HPI: C onstitutional: 44 year old female presents with c/o weight loss T he patient is here for a 3-month check up on weight management. Pt states she is taking the Wegovy as directed. * ROS: D ERMATOLOGY: no R lizette. n o H sanjuana. G ASTROENTEROLOGY: no N ausea. n o V omiting. n o D iarrhea.? U ROLOGY: no D ifficulty urinating. n [...] 1 CAPSULE BY MOUTH ONCE DAILY , Taking Wegovy 2.4 MG/0.75ML Solution Auto-injector 0.75 mL Subcutaneous once a week , Medication List reviewed and reconciled with the patient * Allergies: N .K.D.A. Objective: * Vitals: W t: 167, Temp: 97.7, BP: 124/72, HR: 91, Nurse: bob, Ht: 67, BMI:26.15. * Examination: G eneral Examination: General Appearance: N AD. H eart: R SR. L ungs:?clear to auscultation. Assessment: * Assessment: 1. N on morbid obesity - E66.9 (Primary) 2 . B PA 26.0-26.9,adult - Z68.26? Plan: * Treatment: * Procedure Codes: 1 036F TOBACCO NON-USER, G8420 BMI<30 AND >=22 CALC & DOCU, G8783 BP SCR PRFRM RCMDD DEFIND SCR INTVL, G8752 MOST RECENT SYSTOLIC BP < 140MM HG, G8754 MOST RECENT DIASTOLIC BP < 90MM HG * Follow Up: 6 Months * Images: Billing Information: * Visit Code: 90617 Office Visit, Est Pt., Level 3. * Procedure Codes: 1036F TOBACCO NON-USER. G8420 BMI<30 AND >=22 CALC & DOCU. G8783 BP SCR PRFRM RCMDD DEFIND SCR INTVL. G8752 MOST RECENT SYSTOLIC BP < 140MM HG. G8754 MOST RECENT DIASTOLIC BP < 90MM HG. * Electronic signature of Tatum Rosas MD on 03/30/2025 at 07:11 AM EDT Sign off status: Pending * Provider: Meenakshi Rosas M.D. Date: 0 11/25/2024 Generated for Shon paul/Jeremías/Dorindasmitting on: 1 07:11 AM EDT History and Physical Notes * HPI (History of Present Illness) Category Sub-Category Detail Notes Category Not es Constitutional weight loss The patient is h ere for a 3-month check up on weight management. Pt states she is taking the Wegovy as directed Examination Category Sub-Category Detail Notes Category Not es General Examination Heart: RSR Lungs: clear to auscultatio n General Appearance: NAD
--- OUTSIDE RECORDS SUMMARY | 2025-03-30 07:12 | XMS_ITS | Clinical Summary ---
Author Organization [facility] Address [address] [place] [address] Phone Care Team Providers Care Life Care Planner Name Role Phone Cam Bermeo Primary Care Provider [phone] Allergies No known active allergies Medications MULTI-VITAMIN ORAL Take by mouth. Activ e UNABLE TO FINDIndications: Chucho's thyroiditis,S/P bariatric surgery,Borderli ne abnormal TFTs,Low testosterone level in female Take by mouth daily. Bariatric Active vilazodone (VIIBRYD) 20 mg Oral TabletIndication s:Chucho's thyroiditis,S/P bariatric surgery,Borderli ne abnormal TFTs,Low testosterone level in female Take 20 mg by mouth daily. Active UNABLE TO FINDIndications: Chucho's thyroiditis,S/P bariatric surgery,Borderli ne abnormal TFTs,Low testosterone level in female Take by mouth 2 times daily. Hair Balance Active UNABLE TO FINDIndications: Chucho's thyroiditis,S/P bariatric surgery,Borderli ne abnormal TFTs,Low testosterone level in female Take by mouth 2 times daily. Black Currant Oil Active TURMERIC ORAL Take 1,000 mg by mouth daily. Active Cholecalciferol, Vitamin D3, (VITAMIN D3) 125 mcg (5,000 unit) Oral Tablet Take by mouth daily. Active CALCIUM ACETATE ORAL Take by mouth daily. Active LEVOthyroxine (SYNTHROID) 100 mcg Oral TabletIndication s:Low testosterone level in female,Chucho 's thyroiditis,S/P bariatric surgery,Borderli ne abnormal TFTs Take 1 Tablet by mouth daily. 90 Tablet 3 12/16/202 1 Active Testosterone, Bulk, Misc PowderIndication s:Low testosterone level in female Please compound cream for testosterone dose of 2000 mcg daily. Okay to supply 90 days with 1 refill. 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 Depression Graves disease Family History Medical History Relation Name Comments High Blood Pressure Father High Cholesterol Father Hypertension Father High Blood Pressure Mother Hypertension Mother Relation Name Status Comments Brother Alive Father Alive Mother Social History Tobacco Use Types Packs/Day Years Used Date Smoking Tobacco: Never Smokeless Tobacco: Never Alcohol Use Standard Drinks/Week Comments Yes 0 (1 standard drink = 0.6 oz pur e alcohol) occassionaly Comments No Sex and Gender Information Value Date Recorded Sex Assigned at Not on file Legal Sex Female 6:37 PM EDT Gender Identity Not on file Sexual Orientation Not on file Last Filed Vital Signs Vital Sign Reading Time Taken Comments Blood Pressure 124/72 04/27/2019 8:25 AM EST Pulse 76 04/27/2019 8:25 AM EST Temperature 36.7 C (98.1 F) 07/20/2011 6:38 PM EST Respiratory Rate 16 04/27/2019 8:25 AM EST Oxygen Saturation 100% 07/20/2011 6:38 PM EST Inhaled Oxygen Concentration - - Weight 80.7 kg (178 lb) 11/11/2019 8:15 AM EDT P er Patient Height 168.9 cm (5' 6.5 ) 11/11/2019 8:15 AM EDT Body Mass Index 28.3 11/11/2019 8:15 AM EDT Plan of Treatment Health Maintenance Due Date Last Done Comments Annual Wellness Exam 1981 DTaP/TDaP/Td (1 - Tdap) 1997 Hepatitis B Vaccine (1 of 3 - 19+ 3-dose series) 1997 HPV/Pap Cotest 2008 Cologuard 2023 Colon Cancer Screening 2023 Colonoscopy 2023 FIT 2023 Sigmoidoscopy 2023 Virtual Colonography 2023 Breast Cancer Screening 06/13/2024 06/13/19 23, 05/15/2022, 06/06/2021, Additional history exists COVID-19 Vaccine (2024- season) 2025 Influenza Vaccine (#1) 2025 9, 04/04/2018, 05/20/2017 Cervical Cancer Screening 06/25/2025 Pap Smear 06/25/2025 06/25/2022, 06/10, 05/15/2021, Additional history exists Meningococcal B Vaccine Aged Out No l onger eligible based on patient's age to complete this topic Pneumococcal Vaccine 0-49 Aged Out No longer eligible based on patient's age to complete this topic Procedures Procedure Name Priority Date/Time Associated Diagnosis Comments MM MAMMO DIGITAL LENIN SCREEN BILAT Routine 06/13/2022 7:39 AM EST Encounter for screening mammogram for malignant neoplasm of breast from Last 3 Months or Most Recently Relevant to Health Maintenance Results * MM MAMMO DIGITAL LENIN SCREEN BILAT (06/13/2022 7:39 AM EST) Anatomical Region Laterality Modality Breast Bilateral Mammography 06/13/2022 7:46 AM EST Impressions 06/13/2022 7:46 AM EST Negative ([id number]) ~ RECOMMENDATION: Routine screening mammogram in 1 year. ~ DISCLAIMER * Any patient with a palpable abnormality, unexplained by breast imaging, should be managed on clinical basis by the attending physician. * Breast imaging has a false negative rate of 15%. * The patient was notified by mail of the results of this examination. *The patient's information was entered into a reminder system with a target due date for the next mammogram, in accordance with the [employer] and the Society of Breast Imaging recommendations. Narrative 06/13/2022 7:46 AM EST Procedure:MM MAMMO DIGITAL LENIN SCREEN BILAT ~ Reason for exam: screening, asymptomatic. Z12.31-Encounter for screening mammogram for malignant neoplasm of [id number] ~ MM MAMMO DIGITAL LENIN SCREEN BILAT Bilateral CC and MLO view(s) were taken. The breast tissue is heterogeneously dense. This may lower the sensitivity of mammography. Prior study comparison: Compared with prior studies the most recent being 06/06/21, 05/26/20 No mammographic evidence of malignancy. ~ Procedure Note Esme Hoffman MD - 06/13/2022 Procedure:MM MAMMO DIGITAL LENIN SCREEN BILAT ~ Reason for exam: screening, asymptomatic. Z12.31-Encounter for screening mammogram for malignant neoplasm of [id number]-CM ~ MM MAMMO DIGITAL LENIN SCREEN BILAT Bilateral CC and MLO view(s) were taken. The breast tissue is heterogeneously dense. This may lower thesensitivity of mammography. Prior study comparison: Compared with prior studies the most recentbeing 06/06/21, 05/26/20 No mammographic evidence of malignancy. ~ IMPRESSION: Negative (DKS-Cxfnomle-1) ~ RECOMMENDATION: Routine screening mammogram in 1 year. ~ DISCLAIMER * Any patient with a palpable abnormality, unexplained by breast imaging, should be managed on clinical basis by the attending physician. * Breast imaging has a false negative rate of 15%. * The patient was notified by mail of the results of this examination. *The patient's information was entered into a reminder system with atarget due date for the next mammogram, in accordance with the [employer] and the Society of Breast Imaging recommendations. Nannette Li MD IMG MAMMOGRAPHY ORDERABLES Final Result from Last 3 Months or Most Recently Relevant to Health Maintenance Insurance [address] [id number] [facility] P[facility] P[facility] Member Subscriber Plan / Payer (Ef fective 2021-Present) Name:Annette Isaac Sherif Relation to Subscriber:Self Name:Annette Isaac Sherif Payer ID:[id number] (NAIC) Type:Not on file Address: [address] [place] [phone] Care Teams Life Care Planner Relationship Specialty Start Date End Date Cam Bermeo [address] [place] [address] PCP - General Family Medicine 08/07/18
--- OUTSIDE RECORDS SUMMARY | 2025-03-30 07:12 | XMS_ITS | Clinical Summary ---
Author Organization [employer] ([place], [place], [place], [place]) Address [address] [place] [address] Care Team Providers Care Automotive Professional Name Role Phone Unavailable Primary Care Provider Unavailabl e Social History Tobacco Use Types Packs/Day Years Used Date Smoking Tobacco: Never Assessed Comments Unknown Sex and Gender Information Value Date Recorded Sex Assigned at Female 12/05/2021 7:10 PM CDT Legal Sex Female 7:10 PM CDT Gender Identity Female 12/05/2021 7:10 PM CDT Sexual Orientation Not on file Plan of Treatment Not on file
--- OUTSIDE RECORDS SUMMARY | 2025-03-30 07:12 | XMS_ITS | Referral Summary ---
Author Organization [employer] ([place], [place], [place], [place]) Address [address] [place] [address] Care Team Providers Care Proposal Analyst Name Role Phone Unavailable Primary Care Provider [...]
--- OUTSIDE RECORDS SUMMARY | 2025-03-30 07:12 | XMS_ITS | Patient Health Record ---
Author Organization [facility] Address [address] [facility] [address] [place] [address] Care Team Providers Care Refractory Repairer Name Role Phone Nannette Li Unavailable [phone] KristypippaAdelina Unavailable [phone] Allergies No Known Allergies Results Component Value Reference Range Notes Menopausal Panel (Estradiol, FSH) Reviewed date:08/04/2024 08:42:13 AM Interpretation: Performing Lab: Notes/Report: Reason For Referral No Information Medications Medication SIG (Take, Route, Frequency, Duration) Notes Start Date End Date Status Viibryd 1 tablet oral QD 06/25/2022 Ac tive Vilazodone HCl 1 tablet oral QD 11/29/2023 Active Levothyroxine Sodium 100 MCG Tablet 1 tablet in the morning on an empty stomach Orally Once a day; Duration: 90 days 03/24/2023 Active Social History Tobacco Use: Social History Observation Description Date Smoking Status WARNING: Information temporarily unavailable Sex Assigned At : Social History Observation Description Sex Assigned At Female Social History Drugs/Alcohol: Social Info Question Answer Notes Alcohol Screen Did you have a drink containing alcohol in the past year? Current some day Household: Social Info Question Answer Notes Household Marital status: Tobacco Use: Social Info Question Answer Notes Tobacco Control (Standard) Tobacco use: Never 03/14/2015 - Additional Details Category Social Info Options Details Miscellaneous: Travel outside of [facility] [place]: Travel History: Uses seat belts Problems Problem Type SNOMED Code ICD Code Onset Dates Problem Status W/U Status Risk Notes Problem Menopausal symptom ([id number]) Menopausal symptoms (N95.1) Active confirmed Encounters Encounter Location Date Provider [facility] [address] [place] [address] 04/02/2024 Nannette Li [facility] [place] [facility] [address] [place] [address] 07/14/2024 Nannette Li Menopausal symptoms N95.1 Assessments Encounter Date Diagnosis (ICD Code) Assessment Notes Treatment Notes Treatment Clinical Notes Section Notes 07/14/2024 Menopausal symptoms (ICD-10 - N95.1) Plan Of Treatment Future Test Test Name Order Date Testosterone, Free & Total 07/14/2024 Insurance Providers Payer Name Payer Address Payer Phone Subscriber Number Group Number Insured Name Patient Relationship to Insured Coverage Start Date Coverage End Date [place] PPO [address] [place] [address] [id number] Annette Isaac Self - patient is the insured Medical (General) History Medical History History ICD Code Thyroid disorder: [employer] Pat ient Portal Oct 09 2016 1:09PM: Thyroid completely quit working on its own. Currently take Levothyroxine *[employer] Patient Portal Oct 09 2016 1:09PM: Onset Date: 02/09/2016 02/09/2016 Stillbirth: 05/31/2014 Mastitis: 05/31/2014 VUS present (see details): CHEK2 Surgical History Surgery Date(Month/Year) Gastric Sleeve
--- OUTSIDE RECORDS SUMMARY | 2025-03-30 07:12 | XMS_ITS | Patient Health Record ---
[facility] [address] [facility] [address] [facility] [address] [place] [id number] Care Team Providers Care Color Grinder Name Role Phone Sonny Rosas Primary Care Provider [phone] Caitie Mock Unavailable [phone] Allergies No Known Allergies Results Component Value Reference Range Notes P-T4 Free (thyroxine) Reviewed date:08/26/2024 03:24:43 PM Interpretation:Normal Performing Lab: Notes/Report: Test performed by [facility] [address] [place] [address] , [address], [place] [address] Yayo Adkins MD, Print Line Operator CLIA: [id number] Thyroxine Free (free T4) 1.35 0.86-1.76 ng/dL P-TSH Reviewed date:08/26/2024 03:24:43 PM Interpretation:Normal Performing Lab: Notes/Report: Test performed by [facility] [address] [place] [address] , [address], [place] [address] Yayo Adkins MD, Print Line Operator CLIA: [id number] TSH 0.84 0.43-5.25 mU/L Influenza Screen (in house) Reviewed date:06/19/2024 11:44:52 [...] Interpretation:neg Performing Lab: Notes/Report: neg Result: neg Influenza Screen (in house) Reviewed date:07/29/2024 12:21:01 [...] Interpretation:Negative Performing Lab: Notes/Report: Negative Result: neg Reason For Referral No Information Medications Medication SIG (Take, Route, Frequency, Duration) Notes Start Date End Date Status Wegovy 2.4 MG/0.75ML 0.75 mL Subcutaneou s once a week; Duration: 30 days 09/24/2024 Active DULoxetine HCl 60 MG 1 capsule Orally On ce a day; Duration: 90 days Active Levothyroxine Sodium 100 MCG 1 tab(s) orally once a day; Duration: 15 day(s) Active Immunizations Vaccine Route Administration Date Status Comme nts xFlu shot- 6months-36 months of sse-UWRJ-UQJM-trivalent Unknown 05/20/2017 Administered Hepatitis A (adult) Unknown 04/04/2018 Administered Fluzone PF Quad (6-35 months) Unknown 04/04/2018 Admini stered Problems Problem Type SNOMED Code ICD Code Onset Dates Problem Status W/U Status Risk Notes Problem Hypothyroidism (85999492) Hypothyroidism (acquired) (E03.9) Active confirmed Problem Degeneration of lumbar intervertebral disc (69779528) Lumbar degenerative disc disease (M51.36) Active confirmed Problem Obesity (233472372) Non morbid obesity (E66.9) Active confirmed Problem Degeneration of lumbar intervertebral disc (79535096) Bulging lumbar disc (M51.36) Active confirmed Vital Signs Heart Rate 91 /min 11/25/2024 Blood pressure diastolic 72 mm Hg 11/25/2024 Height 67 in 11/25/2024 Blood pressure systolic 124 mm Hg 11/25/2024 Weight 167 lbs 11/25/2024 BMI 26.15 kg/m2 11/25/2024 Encounters Encounter Location Date Provider Diagnosis [facility] [address] [place], [place] [id number] 05/25/2024 Sonny Pahrump Non morbid obesity E 66.9 ; Colon cancer screening Z12.11 and Weight gain R63.5 [facility] [address] [place], [place] [id number] 06/19/2024 Caitie Crowdy Acute URI J06.9 ; Bronchitis J40 and Acute otitis media, bilateral H66.93 [facility] [address] [facility] [address] [place], [place] [id number] 07/29/2024 Sonny Pahrump Acute URI J06.9 and Non morbid obesity E66.9 [facility] [address] [place], [place] [id number] 08/24/2024 Sonny Pahrump Non morbid obesity E 66.9 and Hypothyroidism (acquired) E03.9 [facility] [address] [place], [place] [id number] 11/25/2024 Sonny Pahrump Non morbid obesity E 66.9 and BMI 26.0-26.9,adult Z68.26 [facility] [address] [place], [place] [id number] 2024 Sonny Pahrump [facility] [address] [place] [id number] 06/26/2024 Sonny Pahrump [facility] [address] [place] [id number] 08/25/2024 Sonny Pahrump [facility] [address] [place] [id number] 12/07/2024 Sonny Pahrump [facility] [address] [place] [id number] 03/16/2025 Sonny Pahrump Non morbid obesity E 66.9 [facility] [address] [place] [id number] 07/29/2024 Sonny Pahrump [facility] [address] [place], [place] [id number] 09/24/2024 Sonny Pahrump Non morbid obesity E 66.9 [facility] [address] [place] [id number] 10/19/2024 Sonny Pahrump [facility] [address] [place] [id number] 12/31/2024 Sonny Pahrump Non morbid obesity E 66.9 [facility] [address] [place] [id number] 12/31/2024 Sonny Pahrump [facility] [address] [place] [id number] 12/31/2024 Sonny Pahrump [facility] [address] [place] [id number] 01/01/2025 Sonny Pahrump [facility] [address] [place], [place] [id number] 01/27/2025 Sonny Pahrump Non morbid obesity E 66.9 Assessments Encounter Date Diagnosis (ICD Code) Assessment Notes Treatment Notes Treatment Clinical Notes Section Notes 06/19/2024 Bronchitis (ICD-10 - J40) Has an inhaler at home. 06/19/2024 Acute URI (ICD-10 - J06.9) 07/29/2024 Acute URI (ICD-10 - J06.9) 07/29/2024 Non morbid obesity (ICD-10 - E66.9) 08/24/2024 Hypothyroidism (acquired) (ICD-10 - E03.9) 08/24/2024 Non morbid obesity (ICD-10 - E66.9) 09/24/2024 Non morbid obesity (ICD-10 - E66.9) 11/25/2024 BMI 26.0-26.9,adult (ICD-10 - Z68.26) 11/25/2024 Non morbid obesity (ICD-10 - E66.9) 12/31/2024 Non morbid obesity (ICD-10 - E66.9) 01/27/2025 Non morbid obesity (ICD-10 - E66.9) 03/16/2025 Non morbid obesity (ICD-10 - E66.9) 05/25/2024 Colon cancer screening (ICD-10 - Z12.11) 05/25/2024 Non morbid obesity (ICD-10 - E66.9) Discussed starting Noemi she uses [facility] 06/19/2024 Acute otitis media, bilateral (ICD-10 - H66.93) 05/25/2024 Weight gain (ICD-10 - R63.5) Plan Of Treatment Pending Test Test Name Order Date colonoscopy 05/25/2024 Q-R-Vazlareh Protein (CRP) 01/31/2024 Next Appt Details Provider Name:Sonny Graves ry, 05/31/2025 09:00:00 AM, [address] [facility], [address], [place], [place], [id number], Insurance Providers Payer Name Payer Address Payer Phone Subscriber Number Group Number Insured Name Patient Relationship to Insured Coverage Start Date Coverage End Date [employer] [facility] [address] [place] [address] [id number] Thomas MITRA ANTOINE Self - patient is the insured Medical (General) History Medical History History ICD Code Hypothyroidsm, Chucho's, Dr. Martel Depression Low Testosterone Lumbar Disc Disease, MRI 2021 allergic rhinitis Surgical History Surgery Date(Month/Year) Gastric Sleeve 08/2017
--- OUTSIDE RECORDS SUMMARY | 2025-03-30 07:13 | XMS_ITS | Encounter Summary ---
Author Organization [facility] Address [address] [place] [address] [place] [address] Phone Care Team Providers Care Truck Trailer Mechanic Name Role Phone PcpMelissa MD Primary Care Provider [phone] Encounter Details Date Type Department Care Team (Late st Contact Info) Description 05/20/2013 OB Documents [facility] [address] [place] [id number] Margo Arango MD [address] [place] [address] Social History Tobacco Use Types Packs/Day Years Used Date Smoking Tobacco: Never Assessed Comments Unknown Sex and Gender Information Value Date Recorded Sex Assigned at Not on file Legal Sex Female 7:52 PM EDT Gender Identity Not on file Sexual Orientation Not on file documented as of this encounter Plan of Treatment Not on file documented as of this encounter Visit Diagnoses Not on filedocumented in this encounter Care Teams Truck Trailer Mechanic Relationship Specialty Start Date End Date PcpMelissa MD PCP - General Internal Medicine 09/28/13 documented as of this encounter
--- OUTSIDE RECORDS SUMMARY | 2025-03-30 07:13 | XMS_ITS | Encounter Summary ---
Author Organization [facility] [address] Phone Care Team Providers Care District Fire Management Officer Name Role Phone Pcp, None Primary Care Provider [phone] Encounter Details Date Type Department Care Team (Late st Contact Info) Description 02/23/2025 Orders Only [facility] [address] [phone] Nannette Li MD [address] [place] [phone] Menopause syndrome (Primary Dx) Social History Tobacco Use Types Packs/Day Years Used Date Smoking Tobacco: Never Smokeless Tobacco: Never Alcohol Use Standard Drinks/Week Comments Yes 0 (1 standard drink = 0.6 oz pur e alcohol) Comments No Sex and Gender Information Value Date Recorded Sex Assigned at Not on file Legal Sex Female 7:52 PM EDT Gender Identity Not on file Sexual Orientation Not on file documented as of this encounter Plan of Treatment Scheduled Orders Name Type Priority Associated Diagnoses Orde r Schedule TESTOSTERONE TOTAL (FEMALES & CHILDREN) Lab Today Menopause syndrome Expected: 03/25/2025, Expires: 02/23/2026 [facility] Lab Today Menopause syndrome Expected: 03/25/2025, Expires: 02/23/2026 ESTRADIOL LEVEL Lab Today Menopause syndrome Expected: 03/02/2025, Expires: 02/23/2026 documented as of this encounter Visit Diagnoses Diagnosis Menopause syndrome- Primary Symptomatic menopausal or female climacteric states documented in this encounter Care Teams District Fire Management Officer Relationship Specialty Start Date End Date Pcp, Melissa, PCP - General Internal Medicine 09/28/13 documented as of this encounter
--- OUTSIDE RECORDS SUMMARY | 2025-03-30 07:13 | XMS_ITS | Data Portability ---
Author Organization [place] [facility] [place] & ESTELA Bucio ADMIN Address [address] [place] [id number] Care Team Providers Care Insurance Rater Name Role Phone MARYANN CUMMINS Primary Care Provider Assessment Encounter Date Assessment Date Assessment LastModified by Organization Details LastModified Time 08/16/2023 08/16/2023 Telehealth visit is being conducted from [facility] [place] [address]. This was a real-time clinical encounter over [[email or web address] ]. Consent was obtained to engage in telemedicine service. Greater than 50% of the time spent was devoted to counseling and coordinating care including review of records, pertinent lab data and studies as well as discussing diagnostic evaluation and workup, plan therapeutic interventions and future disposition of care. This included any additional research needed to obtain further information in formulating the plan of care for this patient. This includes counseling with the patient about their disease and diagnosis, specifically as below. Patient was also counseled on the precaution of COVID-19 including importance of hand washing and social distancing. WE SPECIFICALLY DISCUSSED RISK FACTORS FOR COVID-19, INCLUDING AGE>60, HEART OR LUNG DISEASE, DIABETES, IMMUNOSUPPRESSION, AND TRAVEL. WE ALSO DISCUSSED THAT NSAIDS MAY WORSEN COVID-19 INFECTION SYMPTOMS AND THAT THEY SHOULD NOT BE USED TO TREAT COVID-19 SYMPTOMS. PATIENT WAS ALSO INFORMED THAT CORTICOSTEROIDS IN ANY FORM (ORAL OR INJECTABLE) WILL DECREASE IMMUNE RESPONSE AND MAY INCREASE RISK OF COVID-19 INFECTION AND SYMPTOMS. THIS ENCOUNTER WAS PERFORMED A TELEMEDICINE VISIT VIA SECURE TWO-WAY VIDEO AND AUDIO TO MINIMIZE RISK AND TRANSMISSION OF COVID-19. THE PATIENT AND WE UNDERSTAND THE LIMITATIONS OF A TELEMEDICINE VISIT INCLUDING INABILITY TO CHECK REFLEXES, POSSIBLY MISSING SUBTLE FINDINGS ON PHYSICAL EXAM. ALTERNATIVE OPTIONS WERE PRESENTED TO THE PATIENT AND THE PATIENT ELECTED TO PROCEED WITH THE VISIT. The patient has been seen in the past by [facility] and treated for her chronic shoulder pain which continues to be managed at this time. Mrs. Antoine returns to [facility] for management of chronic low back pain. She reports having 2 bulging discs that have been affecting her function for a while now. Patient denies any DM, history of infection, or anticoagulant use. The patient presents via televideo today for additional pain to discuss injections. Based on the patient's history and physical exam, it appears her pain is likely associated with sacroiliitis. To address the patient's pain: As conservative treatments are not helping the patient's pain and her pain seems to be worsening and becoming more constant, I will proceed with scheduling a left diagnostic SI joint injection. If the patient receives significant (greater than 80% pain relief for at least 6 hours) benefit from the diagnostic, I will repeat based on insurance, and if the patient again receives significant benefit, I will proceed with scheduling a left therapeutic SI joint injection to allow more long-term pain relief. The procedure will be fluoroscopy-guided . I will order x-rays of the left SI joint and left hip to assess the degree of arthritic/degenera tive changes. I will review imaging prior to procedure. The patient also has been working out and performing mild weightlifting. I advised her to continue, but to let pain lead her exercises and to avoid bending at the hip. Of note, I previously advised the patient to utilize her lumbosacral brace for 2 hours in the morning, but no longer than that as the goal is to strengthen the muscles rather than weakening them. - Schedule a left diagnostic SI joint injection - Order x-rays of the left hip and left SI joint today - Follow up 2 weeks post injection to assess efficacy I have discussed in great detail our potential treatment options which would include a rehabilitative approach to care. This program would include medication management, Physical Therapy, consideration for interventional procedures as appropriate, and lifestyle modification (diet, weight loss, exercise, smoking/tobacco cessation, holistic approach including meditation and yoga). The patient understands and agrees prior to proceeding with this plan. _ __ __ __ __ __ __ __ __ __ __ __ __ __ __ __ __ __ __ __ __ __ __ __ __ __ __ __ _ RECORDS REVIEW: As per clinic policy, we will have the patient sign a release to obtain previous imaging and clinical notes. PROCEDURE: I counseled the patient extensively and informed of the risks of the procedure, including the risk of paralysis, nerve damage, respiratory arrest, arrhythmias, stroke, weakness, and infection, which although very low, could result in or disability. The patient acknowledged to me that they understand and accept these risks. RN EDUCATION Extensive coordination of care provided by RN to educate patient on upcoming procedure and to coordinate obtaining extensive incoming medical records. _ __ __ __ __ __ __ __ __ __ __ __ __ __ __ __ __ __ __ __ __ __ __ __ __ __ __ __ _ PSYCH: Pain affecting Neuro-psych behavior was discussed. Discussed about pain psychological counseling as a part of the multimodal approach to pain treatment. _ __ __ __ __ __ __ __ __ __ __ __ __ __ __ __ __ __ __ __ __ __ __ __ __ __ __ __ _ REHABILITATION: Discussed with the patient the importance of diet, daily physical activity and PT. Discussed with the patient the need to be scheduled for physical therapy since physical therapy will prolong the benefits of the procedure and interventions. _ __ __ __ __ __ __ __ __ __ __ __ __ __ __ __ __ __ __ __ __ __ __ __ __ __ __ __ _ MIGUEL: [id number] I have reviewed patient's MIGUEL report prior to prescribing Schedule II, III, and IV medications that require review by law. [email or web address] Not available 08/19/2023 10:00:36 09/04/2023 09/04/2023 Telehealth visit is being conducted from [facility] [address]. This was a real-time clinical encounter over [[email or web address] ]. Consent was obtained to engage in telemedicine service. Greater than 50% of the time spent was devoted to counseling and coordinating care including review of records, pertinent lab data and studies as well as discussing diagnostic evaluation and workup, plan therapeutic interventions and future disposition of care. This included any additional research needed to obtain further information in formulating the plan of care for this patient. This includes counseling with the patient about their disease and diagnosis, specifically as below. Patient was also counseled on the precaution of COVID-19 including importance of hand washing and social distancing. WE SPECIFICALLY DISCUSSED RISK FACTORS FOR COVID-19, INCLUDING AGE>60, HEART OR LUNG DISEASE, DIABETES, IMMUNOSUPPRESSION, AND TRAVEL. WE ALSO DISCUSSED THAT NSAIDS MAY WORSEN COVID-19 INFECTION SYMPTOMS AND THAT THEY SHOULD NOT BE USED TO TREAT COVID-19 SYMPTOMS. PATIENT WAS ALSO INFORMED THAT CORTICOSTEROIDS IN ANY FORM (ORAL OR INJECTABLE) WILL DECREASE IMMUNE RESPONSE AND MAY INCREASE RISK OF COVID-19 INFECTION AND SYMPTOMS. THIS ENCOUNTER WAS PERFORMED A TELEMEDICINE VISIT VIA SECURE TWO-WAY VIDEO AND AUDIO TO MINIMIZE RISK AND TRANSMISSION OF COVID-19. THE PATIENT AND WE UNDERSTAND THE LIMITATIONS OF A TELEMEDICINE VISIT INCLUDING INABILITY TO CHECK REFLEXES, POSSIBLY MISSING SUBTLE FINDINGS ON PHYSICAL EXAM. ALTERNATIVE OPTIONS WERE PRESENTED TO THE PATIENT AND THE PATIENT ELECTED TO PROCEED WITH THE VISIT. The patient has been seen in the past by [facility] and treated for her chronic shoulder pain which continues to be managed at this time. Mrs. Antoine returns to [facility] for management of chronic low back pain. She reports having 2 bulging discs that have been affecting her function for a while now. Patient denies any DM, history of infection, or anticoagulant use. The patient presents via televideo today 1 week post left diagnostic SI joint injection reporting significant pain relief of greater than 80% for over 6 hours before the pain returned. She mentions that having pain relief in the left made her realize that her pain is also on the right side. Based on the patient's history and physical exam, it appears her pain is likely associated with sacroiliitis. To address the patient's pain: As the patient received significant benefit from the previous diagnostic injection (greater than 80% for over 6 hours), I will schedule a repeat, but I will proceed with bilaterally as both of her SI joints are causing her pain now. If the patient again receives significant benefit, I will proceed with scheduling a bilateral therapeutic SI joint injection to allow more long-term pain relief. The procedure will be fluoroscopy-guided . 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 The patient also has been working out and performing mild weightlifting. I advised her to continue, but to let pain lead her exercises and to avoid bending at the hip. Of note, I previously advised the patient to utilize her lumbosacral brace for 2 hours in the morning, but no longer than that as the goal is to strengthen the muscles rather than weakening them. - Schedule bilateral diagnostic SI joint injection with 0.25% bupivucaine - Reviewed SI joint x-ray today - Follow up 1 week post injection to assess efficacy I have discussed in great detail our potential treatment options which would include a rehabilitative approach to care. This program would include medication management, Physical Therapy, consideration for interventional procedures as appropriate, and lifestyle modification (diet, weight loss, exercise, smoking/tobacco cessation, holistic approach including meditation and yoga). The patient understands and agrees prior to proceeding with this plan. _ __ __ __ __ __ __ __ __ __ __ __ __ __ __ __ __ __ __ __ __ __ __ __ __ __ __ __ _ RECORDS REVIEW: As per clinic policy, we will have the patient sign a release to obtain previous imaging and clinical notes. PROCEDURE: I counseled the patient extensively and informed of the risks of the procedure, including the risk of paralysis, nerve damage, respiratory arrest, arrhythmias, stroke, weakness, and infection, which although very low, could result in or disability. The patient acknowledged to me that they understand and accept these risks. RN EDUCATION Extensive coordination of care provided by RN to educate patient on upcoming procedure and to coordinate obtaining extensive incoming medical records. _ __ __ __ __ __ __ __ __ __ __ __ __ __ __ __ __ __ __ __ __ __ __ __ __ __ __ __ _ PSYCH: Pain affecting Neuro-psych behavior was discussed. Discussed about pain psychological counseling as a part of the multimodal approach to pain treatment. _ __ __ __ __ __ __ __ __ __ __ __ __ __ __ __ __ __ __ __ __ __ __ __ __ __ __ __ _ REHABILITATION: Discussed with the patient the importance of diet, daily physical activity and PT. Discussed with the patient the need to be scheduled for physical therapy since physical therapy will prolong the benefits of the procedure and interventions. _ __ __ __ __ __ __ __ __ __ __ __ __ __ __ __ __ __ __ __ __ __ __ __ __ __ __ __ _ MIGUEL: [id number] I have reviewed patient's MIGUEL report prior to prescribing Schedule II, III, and IV medications that require review by law. [email or web address] Not available 09/05/2023 09:27:29 09/30/2023 09/30/2023 Telehealth visit is being conducted from [address] [facility] [place] [address]. This was a real-time clinical encounter over [[email or web address] ]. Consent was obtained to engage in telemedicine service. Greater than 50% of the time spent was devoted to counseling and coordinating care including review of records, pertinent lab data and studies as well as discussing diagnostic evaluation and workup, plan therapeutic interventions and future disposition of care. This included any additional research needed to obtain further information in formulating the plan of care for this patient. This includes counseling with the patient about their disease and diagnosis, specifically as below. Patient was also counseled on the precaution of COVID-19 including importance of hand washing and social distancing. WE SPECIFICALLY DISCUSSED RISK FACTORS FOR COVID-19, INCLUDING AGE>60, HEART OR LUNG DISEASE, DIABETES, IMMUNOSUPPRESSION, AND TRAVEL. WE ALSO DISCUSSED THAT NSAIDS MAY WORSEN COVID-19 INFECTION SYMPTOMS AND THAT THEY SHOULD NOT BE USED TO TREAT COVID-19 SYMPTOMS. PATIENT WAS ALSO INFORMED THAT CORTICOSTEROIDS IN ANY FORM (ORAL OR INJECTABLE) WILL DECREASE IMMUNE RESPONSE AND MAY INCREASE RISK OF COVID-19 INFECTION AND SYMPTOMS. THIS ENCOUNTER WAS PERFORMED A TELEMEDICINE VISIT VIA SECURE TWO-WAY VIDEO AND AUDIO TO MINIMIZE RISK AND TRANSMISSION OF COVID-19. THE PATIENT AND WE UNDERSTAND THE LIMITATIONS OF A TELEMEDICINE VISIT INCLUDING INABILITY TO CHECK REFLEXES, POSSIBLY MISSING SUBTLE FINDINGS ON PHYSICAL EXAM. ALTERNATIVE OPTIONS WERE PRESENTED TO THE PATIENT AND THE PATIENT ELECTED TO PROCEED WITH THE VISIT. Annette Antoine is a 43 year old female presenting for chronic low back pain. The patient denies DM, anti-coagulant use, and history of MRSA. The patient presents today via televideo 1 week S/P diagnostic bilateral SI joint injection. The patient denies experiencing significant improvement in pain or function. The patient primarily complains of left-sided low back and buttock/hip pain with radiation into the groin. The patient notes that pain worsens when she raises her left leg (hip flexion), in addition to weight-bearing. It seems that this particular pain is originating in the left hip joint. I have reviewed imaging. The patient has attempted to make lifestyle modifications, but pain continues to impede performing ADLs, thereby negatively affecting quality of life. After a detailed discussion of treatment modalities and the respective risks/benefits, I will proceed with scheduling a left hip intra-articular injection. I will follow up 2 weeks post-injection. I have discussed in great detail our potential treatment options which would include a rehabilitative approach to care. This program would include medication management, Physical Therapy, consideration for interventional procedures as appropriate, and lifestyle modification (diet, weight loss, exercise, smoking/tobacco cessation, holistic approach including meditation and yoga). The patient understands and agrees prior to proceeding with this plan. _ __ __ __ __ __ __ __ __ __ __ __ __ __ __ __ __ __ __ __ __ __ __ __ __ __ __ __ _ RECORDS REVIEW: As per clinic policy, we will have the patient sign a release to obtain previous imaging and clinical notes. PROCEDURE: I counseled the patient extensively and informed of the risks of the procedure, including the risk of paralysis, nerve damage, respiratory arrest, arrhythmias, stroke, weakness, and infection, which although very low, could result in or disability. The patient acknowledged to me that they understand and accept these risks. RN EDUCATION Extensive coordination of care provided by RN to educate patient on upcoming procedure and to coordinate obtaining extensive incoming medical records. _ __ __ __ __ __ __ __ __ __ __ __ __ __ __ __ __ __ __ __ __ __ __ __ __ __ __ __ _ PSYCH: Pain affecting Neuro-psych behavior was discussed. Discussed about pain psychological counseling as a part of the multimodal approach to pain treatment. _ __ __ __ __ __ __ __ __ __ __ __ __ __ __ __ __ __ __ __ __ __ __ __ __ __ __ __ _ REHABILITATION: Discussed with the patient the importance of diet, daily physical activity and PT. Discussed with the patient the need to be scheduled for physical therapy since physical therapy will prolong the benefits of the procedure and interventions. _ __ __ __ __ __ __ __ __ __ __ __ __ __ __ __ __ __ __ __ __ __ __ __ __ __ __ __ _ MIGUEL: [id number] I have reviewed patient's MIGUEL report prior to prescribing Schedule II, III, and IV medications that require review by law. [email or web address] Not available 10/01/2023 11:49:16 10/14/2023 10/14/2023 Ms. Antoine was se lf referred for chronic low back pain. The patient denies DM, anti-coagulant use, and history of MRSA. The patient presents to the clinic today 3 weeks post left intra-articular hip injection reporting minimal improvement in pain and function. Based on the patient's history and physical exam, it appears her pain is likely associated with sacroiliitis and myofascial pain of the left psoas muscle. To address the patient's pain: As the patient received significant pain relief from the bilateral diagnostic SI joint injection in 09/2023 (greater than 80% for 1 day), I will proceed with scheduling a bilateral therapeutic SI joint injection. This procedure will be fluoroscopy guided. I am hopeful that the SI injection will help with her ongoing groin pain as well. I have reviewed the patient's x-rays of the bilateral SI joints showing mild degenerative changes. I also reviewed the patient's left hip MRI which was unremarkable. The patient continues performing at home exercises/stretche s and other conservative measures with minimal benefit. If the patient's pain persists post SI joint injection, I will discuss proceeding with a TPI of the left psoas muscle. Regarding her right elbow, I advised the patient to utilize a brace to help with her pain. If the brace is ineffective, I will discuss an injection to manage her pain. - Schedule a bilateral therapeutic SI joint injection - Reviewed SI joint x-rays and left hip MRI - Follow up 2 weeks post injection to assess efficacy I have discussed in great detail our potential treatment options which would include a rehabilitative approach to care. This program would include medication management, Physical Therapy, consideration for interventional procedures as appropriate, and lifestyle modification (diet, weight loss, exercise, smoking/tobacco cessation, holistic approach including meditation and yoga). The patient understands and agrees prior to proceeding with this plan. _ __ __ __ __ __ __ __ __ __ __ __ __ __ __ __ __ __ __ __ __ __ __ __ __ __ __ __ _ RECORDS REVIEW: As per clinic policy, we will have the patient sign a release to obtain previous imaging and clinical notes. PROCEDURE: I counseled the patient extensively and informed of the risks of the procedure, including the risk of paralysis, nerve damage, respiratory arrest, arrhythmias, stroke, weakness, and infection, which although very low, could result in or disability. The patient acknowledged to me that they understand and accept these risks. RN EDUCATION Extensive coordination of care provided by RN to educate patient on upcoming procedure and to coordinate obtaining extensive incoming medical records. _ __ __ __ __ __ __ __ __ __ __ __ __ __ __ __ __ __ __ __ __ __ __ __ __ __ __ __ _ PSYCH: Pain affecting Neuro-psych behavior was discussed. Discussed about pain psychological counseling as a part of the multimodal approach to pain treatment. _ __ __ __ __ __ __ __ __ __ __ __ __ __ __ __ __ __ __ __ __ __ __ __ __ __ __ __ _ REHABILITATION: Discussed with the patient the importance of diet, daily physical activity and PT. Discussed with the patient the need to be scheduled for physical therapy since physical therapy will prolong the benefits of the procedure and interventions. _ __ __ __ __ __ __ __ __ __ __ __ __ __ __ __ __ __ __ __ __ __ __ __ __ __ __ __ _ MIGUEL: [id number] I have reviewed patient's MIGUEL report prior to prescribing Schedule II, III, and IV medications that require review by law. Not available 10/15/2023 12:15:56 12/04/2023 12/04/2023 Ms. Antoine is a self-referral for chronic low back pain. The patient denies DM, anti-coagulant use, and history of MRSA. The patient presents to the clinic today nearly 6 weeks S/P therapeutic bilateral SI joint injection. The patient reports experiencing significant improvement in pain and function of nearly 100%. The patient complains of mild left-sided buttock/hip pain, which is seemingly myofascial in nature (particularly involvement of the left psoas muscle). Of course, I think sacroiliitis is the underlying disease process. I have reviewed the SI joint x-ray, which revealed mild degenerative changes. I have also reviewed the left hip MRI, which was unremarkable. The patient notes that pain is manageable at this time. The patient was able to enjoy vacationing in [place], which she thinks would have been unlikely prior to the procedure. Considering the success of the procedure, I anticipate repeating in the future as needed. The patient is currently managing right elbow pain conservatively (bracing). If pain persists, I will consider interventional treatment. I will follow up prn for new or returning pain. I have discussed in great detail our potential treatment options which would include a rehabilitative approach to care. This program would include medication management, Physical Therapy, consideration for interventional procedures as appropriate, and lifestyle modification (diet, weight loss, exercise, smoking/tobacco cessation, holistic approach including meditation and yoga). The patient understands and agrees prior to proceeding with this plan. _ __ __ __ __ __ __ __ __ __ __ __ __ __ __ __ __ __ __ __ __ __ __ __ __ __ __ __ _ RECORDS REVIEW: As per clinic policy, we will have the patient sign a release to obtain previous imaging and clinical notes. PROCEDURE: I counseled the patient extensively and informed of the risks of the procedure, including the risk of paralysis, nerve damage, respiratory arrest, arrhythmias, stroke, weakness, and infection, which although very low, could result in or disability. The patient acknowledged to me that they understand and accept these risks. RN EDUCATION Extensive coordination of care provided by RN to educate patient on upcoming procedure and to coordinate obtaining extensive incoming medical records. _ __ __ __ __ __ __ __ __ __ __ __ __ __ __ __ __ __ __ __ __ __ __ __ __ __ __ __ _ PSYCH: Pain affecting Neuro-psych behavior was discussed. Discussed about pain psychological counseling as a part of the multimodal approach to pain treatment. _ __ __ __ __ __ __ __ __ __ __ __ __ __ __ __ __ __ __ __ __ __ __ __ __ __ __ __ _ REHABILITATION: Discussed with the patient the importance of diet, daily physical activity and PT. Discussed with the patient the need to be scheduled for physical therapy since physical therapy will prolong the benefits of the procedure and interventions. _ __ __ __ __ __ __ __ __ __ __ __ __ __ __ __ __ __ __ __ __ __ __ __ __ __ __ __ _ MIGUEL: [id number] I have reviewed patient's MIGUEL report prior to prescribing Schedule II, III, and IV medications that require review by law. [email or web address] Not available 12/04/2023 15:59:27 Plan of Treatment Reminders Order Date Submit Date Provider Last Modified By Organization Details Last Modified Time Details Appointments None recorded. Lab None recorded. Referral None recorded. Procedures sacroiliac joint injection (PROC) - [id number], bilateral therapeutic SI joint injection 2023 024 Ben Montes MD, [address], [address], [place], [address], 13:16:40 arthrocente sis, aspiration and/or injection, major joint or bursa (PROC) - Left hip intra-artic ular injection. [id number]. 2023 024 [email or web address] Ben Montes MD, [address], [address], [place], [address], 4 14:46:01 sacroiliac joint injection (PROC) - [id number], bilateral diagnostic SI joint injection 2023 024 [email or web address] Ben Montes MD, [address], [address], [place], [address], 4 09:57:30 sacroiliac joint injection (PROC) - [id number], left diagnostic SI joint injection 2023 024 Ben Montes MD, [address], [address], [place], [address], 4 10:34:58 Surgeries None recorded. Imaging XR, hip, unilateral - left hip [address] (X-Ray), [address] [place] [address] [address], [place], [address], 4 13:21:54 XR, sacroiliac joint(s) - left SI joint [address] (X-Ray), [address] [place], [place] [address]y [address], [place], [address], 4 13:21:54 Medication Orders None recorded. Patient TargetsNo targets recorded. Patient InstructionsNo instructions recorded. Reason for Referral None Reported. Results Created Date Observation Date Name Description Value Unit Range Abnormal Flag Note LastModifiedBy Organization Detail LastModifiedTime 08/28/1908/28/2023 URINE PREGN VALORIE TEST urine test NEGATI VE negati ve Not Available [facility] ([facility]) [address] [place], [address], 08/28/2023 14:43:19 08/28/19 24 08/28/2023 URINE PREGN VALORIE TEST HCG urine lot # [id number] Not Available [facility] ([facility]) [address], [place], [address], 08/28/2023 14:43:19 08/28/19 24 08/28/2023 URINE PREGN VALORIE TEST HCG urine exp date Not Available [facility] ([facility]) [address] [place], [address], 08/28/2023 14:43:19 08/28/19 24 08/28/2023 URINE PREGN VALORIE TEST HCG urine int control pos OK positi ve Not Available [facility] ([facility]) [address] [place], [address], 08/28/2023 14:43:19 09/25/19 24 09/25/2023 URINE PREGN VALORIE TEST urine test NEGATI VE negati ve Not Available [facility] ([facility]) [address] [place], [address], 09/25/2023 09:29:46 09/25/19 24 09/25/2023 URINE PREGN VALORIE TEST HCG urine lot # [id number] Not Available [facility] ([facility]) [address] [place], [address], 09/25/2023 09:29:46 09/25/19 24 09/25/2023 URINE PREGN VALORIE TEST HCG urine exp date Not Available [facility] ([facility]) [address] [place], [address], 09/25/2023 09:29:46 09/25/19 24 09/25/2023 URINE PREGN VALORIE TEST HCG urine int control pos OK positi ve Not Available [facility] ([facility]) [address] [place], [address], 09/25/2023 09:29:46 09/24/19 24 09/24/2023 sacro iliac joint s min views [facility] [address] [place] [address] Phone: Fax: Name: ANNETTE ANTOINE Exam Date: : 1979 Age 43 years Gender : F Access ion: [id number] Physic mio: BEN PELAEZ Facili ty: [facility] Facili ty HSV: Outpat ient Exam: SACROI LIAC JOINTS MIN VIEWS SI joints 2 VIEW HISTOR Y: Pain. FINDIN GS: No eviden ce of an acute, displa won fractu re or disloc ation of the visual ized bony zachary ecture . Mild degene rative change s of the bilate ral SI joints , otherw ise symmet kyree and patent . IMPRES MIKE: No acute bony abnorm ality. Dictat ed By: Rosemarie Truong Transc ribje By: Rosemarie Diaz Transc ribed On: 4:47 PM Electr onical ly signed by: Rosemarie Truong Thank you for referr ANNETTE Shipman to [facility]. Legall y authen ticate d by ELIS VAUGHAN 2023-0 09-23 16:47: 17 CC'ed Logic: Orderi ng Provid er: ISIDORO CONTRERAS Attend ing Provid er: ISIDORO CONTRERAS Referr ing Provid er: ISIDORO CONTRERAS Admitt ing Provid er: ISIDORO weaver [facility] [address], [place], [address], 11/13/2023 08:32:15 Result Notes None recorded. Problems Name Problem SNOMED Code Status Onset Date Resolution Date Notes Provider Name and Address Organization Details Recorded Time Inflammatio n of sacroiliac joint 25677472 Active 2023 Fawn Keenan null, [place] [facility] [place] & [place] 4 14:15:26 Myofascial pain 394463967 Active 2023 Fawn Ke[place] [facility] [place] 4 14:15:39 Lumbar spondylosis 916902503 Active 2023 Fawn Keenan [place] [facility] [place] 4 14:15:52 Spinal stenosis of lumbar region 84704391 Active 2023 Fawn Keen[place] [facility] [place] 4 14:15:54 Pain of left hip joint 1247571534500 00 Active 2023 Fawn Keen[place] [facility] [place] 4 08:20:05 Arthritis of right sacroiliac joint 6921867441904 100 Active 2023 Fawn Keenan [place] [facility] [place] 4 08:52:22 Right lateral elbow tendinopath y 1769166700895 07 Active 2023 Fawn Keenan null[place] [facility] [place] 4 12:16:29 Problem Notes None recorded. Procedures Surgical History Date Name Laterality Status Provider Name and Address Organization Details Recorded Time 06/27/19 24 completed [place] [facility] [facility] [place] 12/04/2023 15:47:17 06/10/19 18 Abdominal Surgery completed [place] Tingdave DWAY[place] [facility] [place] 12/04/2023 15:47:29 06/10/19 02 LASIK [place] [facility] [place] 12/04/2023 15:47:29 Imaging Results None recorded. Procedure Notes None recorded. Medical Equipment None Reported. Allergies No known drug allergies Medications Name Sig Start Date Stop Date Status Note LastModified by Organization Details LastModified Time sulfamethoxazo le 800 mg-trimethopri m 160 mg tablet 08/18 completed Not Available Not Available Not Available levothyroxine 100 mcg tablet active Not Available Not Availab le Not Available Co Q10 DAILY active Not Available Not Availa ble Not Available multivitamin DAILY active Not Available Not Available Not Available Probiotic DAILY active Not Available Not Mona ilable Not Available vilazodone 40 mg tablet 12/03 completed Not Available Not Available Not Available vilazodone 20 mg tablet active Not Available Not Available No t Available Vitals Date Recorded Body weight Body temperature Oxygen saturation Oxygen saturation in Arterial blood by Pulse oximetry Heart rate Systolic And Diastolic Provider Name and Address Organization Details Last Updated DateTime 4 22918.5 8 g 98 [degF] 97 % 97 % 71 /min 130/82 mm[Hg] Neida Hines [facility] & [place] 4 09:00:38 Date Recorded Body weight Body temperature Oxygen saturation Oxygen saturation in Arterial blood by Pulse oximetry Heart rate Systolic And Diastolic Provider Name and Address Organization Details Last Updated DateTime 4 49932.5 9 g 98.4 [degF] 97 % 97 % 70 /min 118/72 mm[Hg] Emma Delgadillo [facility] & [place] 4 15:46:53 Social History Question Answer Notes LastModified by Organizat ion Details LastModified Time Tobacco Smoking Status Never [facility]oker [facility] & [place] 12/04/2023 15:47:25 Do You Have An Advance Directive? No Information not available 12/04/2023 Are You Blind Or Do You Have Difficulty Seeing? No Information not available 12/04/2023 What Was The Date Of Your Most Recent Tobacco Screening? 08/15/2023 Information not available 12/04/2023 Are You Passively Exposed To Smoke? No Information not available 12/04/2023 Sex: Unknown Functional Status Question Answer Note LastModified by Organizat ion Details LastModified Time Do you use any illicit or recreational drugs? No Information not available 12/04/2023 What is your level of alcohol consumption? Occasional Information not available 12/04/2023 What is your exercise level? Heavy Information not available 12/04/2023 Mental Status Question Answer Note LastModified by Organization D etails LastModified Time Do you feel stressed (tense, restless, nervous, or anxious, or unable to sleep at night)? [id number] Information not available 12/04/2023 Family History Relationship Description Onset Age of this Age Resolved Age Notes LastModified by Organization Details LastModified Time Mother Myocardial infarction pt. added direct ly (08/14) [email or web address]-13 Not available 08/15/2023 12:47:13 Mother Hypercholest erolemia pt. added direct ly (08/14) [email or web address]-13 Not available 08/15/2023 12:47:21 Father Hypercholest erolemia pt. added direct ly (08/14) [email or web address]-13 Not available 08/15/2023 12:47:21 Medical History Condition Response Obesity Y Thyroid Problems Y Hypertension Y Gynecological History Statement/Question Response Abnormal Pap N Flow Moderate 06/27/2023 Date of LMP 08/01/2023 Sexually Active? Y Menses Monthly Y Duration of Flow (days) 5 Current Control Method Partner Vas ectomy Age at Menarche 43 Obstetrics History GPAL:G 0 P 0 0 0 0 Past Encounters Encounter ID Performer Location Encounter Start Date Encounter Closed Date Diagnosis/Indication Diagnosis SNOMED-CT Code Diagnosis ICD10 Code Diagnosis IMO Codes Diagnosis Note [id number] Ben Montes MD [facility] [address] [facility] [address] [place] [address] 07/01/2023 13:58:48 07/01/2023 14:20:15 Inflammation of sacroiliac joint 13196120 M46.1 Myofascial pain 93471485 9 M79.10 Lumbar spondylosis 74662 0009 M47.896 Spinal spencer nosis of lumbar region 93924832 M99.53 [id number] Ben Montes MD [facility] [address] [facility],[address] [place] [address] 08/16/2023 07:58:33 08/16/2023 08:59:27 Inflammation of sacroiliac joint 12437387 M46.1 Myofascial pain 00061448 9 M79.10 Lumbar spondylosis 16487 0009 M47.896 Spinal spencer nosis of lumbar region 79735852 M99.53 Pain of le ft hip joint 5481008015 37330 M25.552 [id number] Ben Montes MD [facility] [address] [facility] [place] [address] 09/04/2023 13:49:17 09/04/2023 14:09:43 Inflammation of sacroiliac joint 99795574 M46.1 Myofascial pain 86398082 9 M79.10 Lumbar spondylosis 87002 0009 M47.896 Pain of le ft hip joint 8401104756 09811 M25.552 Spinal spencer nosis of lumbar region 46160530 M99.53 [id number] Ben Montes MD [facility] [facility] [facility] [address] [address] 09/30/2023 13:07:46 09/30/2023 16:18:36 Inflammation of sacroiliac joint 25244911 M46.1 Myofascial pain 67319061 9 M79.10 Lumbar spondylosis 68818 0009 M47.896 Pain of le ft hip joint 9355563808 11265 M25.552 Spinal spencer nosis of lumbar region 64984202 M99.53 M48.581 [id number] Ben Montes MD [facility]-[address] [facility] [facility] [address] [address] 10/14/2023 08:21:13 10/14/2023 09:13:50 Inflammation of sacroiliac joint 32611393 M46.1 Myofascial pain 45648211 9 M79.10 Lumbar spondylosis 75415 0009 M47.896 Pain of le ft hip joint 3388434327 84436 M25.552 Spinal spencer nosis of lumbar region 70852998 M99.53 M48.061 Right late ral elbow tendinopathy 3689790035 52466 M77.11 [id number] Ben Montes MD [facility] [facility] [address] [facility] [address] [address] 12/04/2023 15:30:25 12/04/2023 15:49:51 Inflammation of sacroiliac joint 01980078 M46.1 Myofascial pain 88545478 9 M79.10 Lumbar spondylosis 81966 0009 M47.896 Pain of le ft hip joint 2898104164 92661 M25.552 Spinal spencer nosis of lumbar region 55431863 M99.53 M48.061 Right late ral elbow tendinopathy 4303549316 00296 M77.11 Health Concerns Section Related Observation LastModified by Organization Detai ls LastModified Time None Recorded Concern Status LastModified by Organization Details LastModified Time None Recorded Advance Directives Directive N: Payers Insurance Date Sequence Insurance Name Policy Number Policy Santa Covered Member ID Santa Member ID Guarantor Name 07/01/2023 2 [place] [id number] Annette Antoine [id number] 27 Annette Antoine 12/03/2023 1 [place] [id number] Annette Antoine [id number] Annette Antoine Notes Date Note Type Note Provider Name and Address Organization Details Recorded Time 08/16/2023 text/html The patient has been seen in the past by [facility] and treated for her chronic shoulder pain which continues to be managed at this time. Mrs. Antoine returns to [facility] for management of chronic low back pain. She reports having 2 bulging discs that have been affecting her function for a while now. Patient denies any DM, history of infection, or anticoagulant use. The patient presents via televideo today for additional pain to discuss injections. Patient continues to complain of low back pain (worse on the left) causing sharp pain with certain movements, negatively impacting her daily function. She reports managing her pain through chiropractics with traction, but it is gradually returning and chiropractics is no long beneficial. She also works out and does mild weightlifting to help with her pain and daily function, but more recently, her pain has increased. The patient was wanting to exhaust conservative treatments, but her pain is worsening (constant, everyday), so she wishes to discuss injections for pain control Pain today is a 09/17. Ben Montes MD [address] [facility], [place], [address], [facility] & [place] 08/19/2023 14:28:00 09/04/2023 text/html The patient has been seen in the past by [facility] and treated for her chronic shoulder pain which continues to be managed at this time. Mrs. Antoine returns to [facility] for management of chronic low back pain. She reports having 2 bulging discs that have been affecting her function for a while now. Patient denies any DM, history of infection, or anticoagulant use. The patient presents via televideo today 1 week post left diagnostic SI joint injection reporting significant pain relief of greater than 80% for over 6 hours before the pain returned. She mentions that having pain relief in the left made her realize that her pain is also on the right side. The patient complains of low back pain (bilaterally, but worse on the left) causing sharp pain with certain movements, negatively impacting her daily function. She is wanting to address both sides now if possible. Pain today is a 4/10. Ben Montes MD [address], [place], [address], [facility] & [place] 09/05/2023 09:27:53 09/30/2023 text/html ROS as noted in the HPI Annette Antoine is a 43 year old female presenting for chronic low back pain. The patient denies DM, anti-coagulant use, and history of MRSA. The patient presents today via televideo 1 week S/P diagnostic bilateral SI joint injection. The patient denies experiencing significant improvement in pain or function. The patient primarily complains of left-sided low back and buttock/hip pain. The patient states that pain worsens when she raises her left leg (hip flexion). Today the pain level is a 3/10. Ben Montes MD [address], [place], [address], [facility] & [place] 10/02/2023 14:46:25 10/14/2023 text/html ROS as noted in the HPI Ms. Antoine was self referred for chronic low back pain. The patient denies DM, anti-coagulant use, and history of MRSA. The patient presents to the clinic today 3 weeks post left intra-articular hip injection reporting minimal improvement in pain and function. She continues to complain of left groin pain with lifting her LLE. She also continues to complain of low back pain with radiation into the bilateral hips/buttocks causing sharp pain with certain movements. The patient also has been experiencing right elbow pain more recently, causing pain with lifting. The patient is post bilateral diagnostic SI joint injection in 09/2023 which provided significant pain relief of greater than 80% for 1 day before the pain returned. She mentions recently having a MRI of the left hip performed through her chiropractor. She continues performing at home exercises/stretches and other conservative measures with minimal benefit. Today the pain level is a 4/10. Ben Montes MD [address], [place], [address], [facility] & [place] 10/16/2023 07:23:40 12/04/2023 text/html ROS as noted in the HPI Ms. Antoine is a self-referral for chronic low back pain. The patient denies DM, anti-coagulant use, and history of MRSA. The patient presents to the clinic today nearly 6 weeks S/P therapeutic bilateral SI joint injection. The patient reports experiencing significant improvement in pain and function of nearly 100%. The patient complains of mild left-sided buttock/hip pain. The patient states that pain is manageable at this time, noting that she was able to enjoy vacationing in [place]. Today the pain level is a 2/10. Ben Montes MD [address], [place], [address], [facility] & [place] 12/05/2023 13:32:08 OBGyn Episode No OBEpisode recorded.
--- OUTSIDE RECORDS SUMMARY | 2025-03-30 07:13 | XMS_ITS | Clinical Summary ---
Author Organization [facility] Address [address] [place] [address] Care Team Providers Care Gas Flow Regulator Name Role Phone Pcp, None MD Primary Care Provider [phone] Allergies No known active allergies Medications aspirin 81 MG CHEW Chew 81 mg by mouth daily. Active vitamin (TRINATAL RX 1) 60-1 MG TABS Take 1 tablet by mouth daily. Active methyldopa (ALDOMET) 250 MG TABS Take 250 mg by mouth daily. Active DULoxetine (CYMBALTA) 60 MG CPEP Take 60 mg by mouth daily. 5 Active WEGOVY 0.25 MG/0.5ML subcutaneous injection pen SMARTSI.5 Milliliter(s ) SUB-Q Once a Week 4 Active progesterone (PROMETRIUM) 100 mg CAPSIndications:M enopause syndrome Take 1 capsule by mouth daily. 90 capsule 3 5 Active levothyroxine (SYNTHROID, LEVOTHROID) 100 MCG TABS Take 1 tablet by mouth daily. 90 tablet 3 5 Active sulfamethoxazole- trimethoprim (BACTRIM DS,SEPTRA DS) 800-160 mg per tablet Take 1 tablet by mouth every 12 (twelve) hours. 20 tablet 5 Active Active Problems No known active problems Encounters Date Type Department Care Team Description 03/15/2025 Orders Only [facility] Women[facility] Services [facility] [address] [place] [address] Nannette Li MD 02/23/2025 Orders Only [facility] Women[facility] Services [facility] [address] [place] [address] Nannette Li MD Menopause syndrome (Primary Dx) from Last 3 Months Social History Tobacco Use Types Packs/Day Years Used Date Smoking Tobacco: Never Smokeless Tobacco: Never Tobacco Cessation:Counseling Given: Not Answered Alcohol Use Standard Drinks/Week Comments Yes 0 (1 standard drink = 0.6 oz pur e alcohol) Comments No Sex and Gender Information Value Date Recorded Sex Assigned at Not on file Legal Sex Female 7:52 PM EDT Gender Identity Not on file Sexual Orientation Not on file Last Filed Vital Signs Vital Sign Reading Time Taken Comments Blood Pressure 129/85 09/28/2024 4:06 PM EDT Pulse 75 12/02/2013 8:16 AM EDT Temperature 36.6 C (97.9 F) 12/02/2013 8:16 AM EDT Respiratory Rate 20 12/02/2013 8:16 AM EDT Oxygen Saturation - - Inhaled Oxygen Concentration - - Weight 81.2 kg (179 lb) 09/28/2024 4:06 PM EDT Height 170.2 cm (5' 7 ) 09/28/2024 4:06 PM EDT Body Mass Index 28.04 09/28/2024 4:06 PM EDT Plan of Treatment Health Maintenance Due Date Last Done Comments DTap,Tdap,and Td (1 - Tdap) 1989 Colonoscopy 2023 Influenza Vaccine (#1) 2025 Mammogram Screening 09/28/2025 09/28/2024 Pap Screening 09/29/2027 09/28/2024, 03/10, 03/02/2010, Additional history exists RSV Vaccine (60+ or ) (1 - 1-dose 75+ series) 2053 HPV Aged Out No longer eligi ble based on patient's age to complete this topic Meningococcal conjugate valent 4 (MCV4) Aged Out No longer eligible based on patient's age to complete this topic Pneumococcal 0-49 Aged Out No longer eligible based on patient's age to complete this topic RSV Immunization (<20 months) Aged Out No longer eligible based on patient's age to complete this topic Procedures Procedure Name Priority Date/Time Associated Diagnosis Comments CYTOLOGY GRAB JACK MAN Today 09/28/2024 4:37 PM EDT Routine gynecological examination MILLA SCR BILAT LENIN Routine 09/28/2024 3: 48 PM EDT Breast screening from Last 3 Months or Most Recently Relevant to Health Maintenance Results * CYTOLOGY GRAB JACK MAN (09/28/2024 4:37 PM EDT) CYTOLOGY-GRAB JACK MAN CYTOLOGY GYNECOLOGICAL REPORT Name: MITRA ANTOINE EPI#: [id number] Case #: [id number] Final Cytologic Diagnosis A. Thinprep Cervical/Endocervic al with HPV screen and 16/18 Genotyping if Indicated: Adequacy: Satisfactory for evaluation, ABSENT endocervical transformation zone component. Interpretation: Negative for intraepithelial lesion or malignancy. This specimen has been analyzed by the ThinPrep Imaging System ([employer] an automated imaging and review system, which assists the machine pie maker and/or pathologist in evaluation of cells on Thinprep Pap tests. GARRETT Rossi(ASCP) Electronically Signed Out By GARRETT Nance (ASCP) HPV HIGH RISK WITH REFLEX Not Detected 09/30/2024 Text/Comments: This test was performed using the FDA Approved APTIMA HPV mRNA assay which detects E6/E7 messenger RNA of High Risk HPV types (16, 18, 31, 33, 35, 39, 45, 51, 52, 56, 58, 59, 66, and 68). This assay is intended for use in women 21 years or older with ASC-US cervical cytology or women 30 years or older. This assay is not intended to substitute for regular cervical cytology screening. Detection of HPV using the APTIMA HPV Assay does not differentiate HPV types and cannot evaluate persistence of any one type. The use of this assay has not been evaluated for the management of HPV vaccinated women, women with prior ablative or excisional therapy, hysterectomy, or who are . Sensitivities may be affected by collection methods, stage of infection, and the presence of interfering substances. Results of this assay should be interpreted in conjunction with other available laboratory and clinical data. Thin Prep 09/29/2024 CERVIX 09/29/2024 Source of Specimen(s) A: Thinprep Cervical/Endocervic al with HPV screen and 16/18 Genotyping if Indicated Clinical History Date of Last Menstrual Period: 09/14/2024 Menstrual History: Normal Signed out at [facility], [address], [facility] Non-Formatted Report [facility] 09/28/2024 4:37 PM EDT 09/29/2024 10:34 AM EDT Nannette Li MD PATHOLOGY/CYTOLOGY ORDERA BLES Final Result Performing Organization Address City/State/[facility] Co de Phone Number [facility] [address] [place] [address] * [facility] SCR BILAT LENIN (09/28/2024 3:48 PM EDT) Anatomical Region Laterality Modality Chest Bilateral Mammography Nannette Li MD [facility] Final Res ult from Last 3 Months or Most Recently Relevant to Health Maintenance Insurance [employer] [id number] [facility] NOT MEDICARE W [employer] [id number] Advance Directives * Full Code (Latest Code Status on File) Date Activated Date Inactivated Comments 12/01/2013 1:40 AM 12/02/2013 2:14 PM * Full Code Date Activated Date Inactivated Comments 11/30/2013 3:35 PM 12/01/2013 1:40 AM Care Teams Gas Flow Regulator Relationship Specialty Start Date End Date Pcp, Melissa, PCP - General Internal Medicine 09/28/13
--- OUTSIDE RECORDS SUMMARY | 2025-03-30 07:13 | XMS_ITS | Encounter Summary ---
Author Organization [facility] Address [address] [place] [address] [place] [address] Phone Care Team Providers Care Neon Technician Name Role Phone PcpMelissa MD Primary Care Provider [phone] Encounter Details Date Type Department Care Team (Late st Contact Info) Description 03/15/2025 Orders Only [facility]'s Services [address] [address] Nannette Li MD [address] [place] [phone] Social History Tobacco Use Types Packs/Day Years [...] on filedocumented in this encounter Care Teams Neon Technician Relationship Specialty Start Date End Date PcpMelissa MD PCP - General Internal Medicine 09/28/13 documented as of this encounter
--- OUTSIDE RECORDS SUMMARY | 2025-03-30 07:13 | XMS_ITS | Clinical Summary ---
Author Organization [facility] Address [address] [place] [address] Care Team Providers Care Senior Qa Automation Engineer Name Role Phone Teresita Stinson APRN Primary Care Provider [phone] Family History Medical History Relation Name Comments Hypercholesterolemia Father Hypertension Father Hypertension Mother Lung cancer Other 1 Other cancer Other 2 Ovarian cancer Other 3 Relation Name Status Comments Father Mother Other 1 Other 2 Other 3 Social History Tobacco Use Types Packs/Day Years Used Date Smoking Tobacco: Never Alcohol Use Standard Drinks/Week Comments Yes 0 (1 standard drink = 0.6 oz pur e alcohol) Comments Unknown Sex and Gender Information Value Date Recorded Sex Assigned at Not on file Legal Sex Female 8:10 PM EDT Gender Identity Not on file Sexual Orientation Not on file Last Filed Vital Signs Vital Sign Reading Time Taken Comments Blood Pressure - - Pulse - - Temperature - - Respiratory Rate - - Oxygen Saturation - - Inhaled Oxygen Concentration - - Weight 110 kg (242 lb) 02/09/2016 10:36 AM EDT Height 170.2 cm (5' 7 ) 02/09/2016 10:36 AM EDT Body Mass Index 37.9 02/09/2016 10:36 AM EDT Plan of Treatment Health Maintenance Due Date Last Done Comments [facility]-Depression Screening 1978 [facility]-HIV Screening 1978 [facility]-Hepatitis C Screening 1978 [facility]-/Child/Adol SDOH Screenings 1978 [facility]- SDOH Screenings 1996 [facility]-Adult SDOH Screenings 1996 [facility]-DTaP,Tdap,and Td Vaccine s (1 - Tdap) 1997 [facility]-Hepatitis B Vaccines (1 of 3 - 19+ 3-dose series) 1997 [facility]-Pap Smear 04/29/2001 04/29/1998, 05/04/1997 [facility]-Cervical Cancer Screening 2008 [facility]-HPV/Cotest 2008 04/29/1998, 05/04/1997 CT Colonography 2023 Colonoscopy 2023 FIT-DNA 2023 FIT 2023 FOBT 2023 Sigmoidoscopy 2023 [facility]-Colorectal Cancer Screening 2023 [facility]-BSLLX-12 Vaccine (1 - season) 2025 [facility]-Influenza Vaccine (#1) 02/08/202504/04, 05/20/2017 [facility]-Zoster Vaccines (1 of 2) 2028 [facility]-Hepatitis A Vaccines Aged Out 04/04/2018 No longer eligible based on patient's age to complete this topic HPV Vaccines Aged Out No longer eligi ble based on patient's age to complete this topic [facility]-HIB Vaccines Aged Out No longer e ligible based on patient's age to complete this topic [facility]-IPV Vaccines Aged Out No longer e ligible based on patient's age to complete this topic [facility]-Pneumococcal Vaccine: Pediatrics (0 to 5 Years) and At-Risk Patients (6 to 49 Years) Aged Out No longer eligible b ased on patient's age to complete this topic [facility]-Rotavirus Vaccines Aged Out No lo nger eligible based on patient's age to complete this topic Procedures Procedure Name Priority Date/Time Associated Diagnosis Comments CYTO DATA CONVERSION Routine 04/29/1998 12:00 AM EST from Last 3 Months or Most Recently Relevant to Health Maintenance Results * Cytology (04/29/1998 12:00 AM EST) 04/29/1998 05/02/1998 Narrative [facility] - 05/16/1998 12:00 AM EST [facility] MR #: [id number] [facility] [place], [place] [address] 1980 (Age: 17) FW Collect Date: 04/29/1998 00:00 Receipt Date: 05/02/1998 00:00 Page 1 DEPARTMENT OF PATHOLOGY AND LABORATORY MEDICINE CYTOPATHOLOGY REPORT Email: [email or web address] * Converted Case * This report may not match the original report format ATTENDING MD/Practitioner: Diana Ruiz II, MD Service: DATA CONTROL ASSISTANT Location: Reported: 05/16/1998 00:00 Collected: 04/29/1998 00:00 INTERPRETATION CERVICAL/VAGINAL SMEAR WITHIN NORMAL LIMITS. SATISFACTORY FOR INTERPRETATION. Cervical/vaginal cytology is a screening test with a recognized false negative rate. New technologies may decrease but will not eliminate false negative results. Regular (generally annual) cytology screening is recommended to minimize false negative results. Electronically Signed Out By Augie Higginbotham GARRETT Seay([facility]) No Signature Required Cervical cytology is a screening test primarily for squamous cancers and precursors and has associated false negative and positive results. New technologies such as liquid based sampling may decrease but will not eliminate all false negative results. Regular screening and follow-up of unexplained clinical signs and symptoms are recommended to minimize false negative results. Please see the ASCCP website (www.asccp.org) for followup recommendations. If HPV testing was requested, correlation with the results is suggested (please call Microbiology at [phone] for results). CLINICAL INFORMATION: Menstrual History: {Not Provided} Date of Last Menstrual Period: {Not Provided} SPECIMEN DESCRIPTION: A: CERVICAL/VAGINAL SMEAR, PAP ICD: F: {Not Entered} SNOMED CODES: 1; [id number] In cases where a pathologist has signed out the report, the service has been rendered in part by a resident. The signing pathologist has performed and is responsible for the reported pathologic evaluation. us Juan Ruiz MD LAB PATHOLOGY ORDERABLES Final Result SUNQUEST from Last 3 Months or Most Recently Relevant to Health Maintenance Insurance [employer] Care Teams Senior Qa Automation Engineer Relationship Specialty Start Date End Date Teresita Stinson APRN [facility] [place] [address] PCP - General 10/21/20
--- OUTSIDE RECORDS SUMMARY | 2025-03-30 07:13 | XMS_ITS | Encounter Summary ---
Author Organization [facility] Address [address] [place] [address] [place] [address] Phone Care Team Providers Care Contract Serviceman Name Role Phone PcpMelissa MD Primary Care Provider Encounter Details Date Type Department Care Team (Late st Contact Info) Description 09/07/2024 Orders Only [facility] [address] [address] Nannette Li MD [address] [place], [place] [phone] Breast screening (Primary Dx) Social History Tobacco Use Types Packs/Day Years Used Date Smoking Tobacco: Never Alcohol Use Standard Drinks/Week Comments No 0 (1 standard drink = 0.6 oz pur e alcohol) Comments No Sex and Gender Information Value Date Recorded Sex Assigned at Not on file Legal Sex Female 7:52 PM EDT Gender Identity Not on file Sexual Orientation Not on file documented as of this encounter Plan of Treatment Not on file documented as of this encounter Visit Diagnoses Diagnosis Breast screening- Primary Breast screening, unspecified documented in this encounter Care Teams Contract Serviceman Relationship Specialty Start Date End Date PcpMelissa MD PCP - General Internal Medicine 09/28/13 documented as of this encounter
--- OUTSIDE RECORDS SUMMARY | 2025-03-30 07:13 | XMS_ITS | Encounter Summary ---
Author Organization [facility] Address [address] [place] [address] [place] [address] Phone Care Team Providers Care Automotive Instructor Name Role Phone Pcp, None Primary Care Provider [phone] Reason for Referral * Other (Routine) - Pending Review Specialty Diagnoses / Procedures Referred By Contlesvia t Referred To Contact Diagnoses Breast screening Procedures MILLA SCR BILAT Nannette Bush MD Phone: tel: fax: Referral ID Status Reason Start Date Expiration Date Visits Requested Visits Authorized Pending Review Specialty Services Required 09/05/2024 09/05/2025 1 1 Encounter Details Date Type Department Care Team (Late st Contact Info) Description 09/05/2024 Orders Only [facility] [address] [address] Nannette Li MD [address] [place] [phone] Breast screening (Primary Dx) Social History Tobacco Use Types Packs/Day Years Used Date Smoking Tobacco: Never Assessed Comments No Sex and Gender Information Value Date Recorded Sex Assigned at Not on file Legal Sex Female 7:52 PM EDT Gender Identity Not on file Sexual Orientation Not on file documented as of this encounter Plan of Treatment Not on file documented as of this encounter Results * MILLA SCR BILAT LENIN (09/28/2024 3:48 PM EDT) Anatomical Region Laterality Modality Chest Bilateral Mammography Nannette Li MD [facility] Final Res ult documented in this encounter Visit Diagnoses Diagnosis Breast screening- Primary Breast screening, unspecified documented in this encounter Care Teams Automotive Instructor Relationship Specialty Start Date End Date Pcp, None, PCP - General Internal Medicine 09/28/13 documented as of this encounter
[2025-03-31 04:42] LABS: FSH 7.1 mIU/mL (.)
== END 2025-03-30 23:59 | disposition home or self-care (01) ==
PROVIDERS: PCP Family Medicine; Visit Provider Obstetrics & Gynecology Obstetrics
DX: N95.1 Menopausal and female climacteric states (principal)
CPT/HCPCS: 36415; 82670; 83001; 84403